=== PATIENT | male | born 1950 | race Caucasian/White ===

== ENCOUNTER 2017-01-23 14:57 | Inpatient (IN) ==
--- NOTE | 2017-01-23 15:29 | Emergency Department Report ---
Nausea/Vomiting/Diarrhea HPI - General Chief complaint: Nausea/Vomiting/Diarrhea Stated complaint: Diarrhea, vomiting, & diff breathing Time Seen by Provider: 01/23/17 15:26 Source: patient Mode of arrival: ambulatory Limitations: no limitations - History of Present Illness HPI Narrative: He presents to ER with c/o abdominal pain and diarrhea. Is having approximately 30 stools per day. He was evaluated in Er on 01/20/17 for the same thing. Had negative workup aside from K+ of 2.9. Did follow up in clinic today with his PCP Yuly Almodovar and was referred back to ER for reevaluation. Denies any fever or chills. Is having vomiting/abdominal pain/ and diarrhea. MD complaint: vomiting, diarrhea, abdominal pain Onset (ago): week(s) Description of Diarrhea: water Associated Abdominal Pain: Yes Location of pain: diffuse Severity: moderate Quality: cramping Consistency: intermittent Relieving factors: none Exacerbating factors: none Associated symptoms: denies other symptoms - Related Data Home Medications Medication Instructions Recorded Confirmed Nitroglycerin 0.4 mg SL Q5MIN PRN #0 09/16/12 01/23/17 Mirtazapine 7.5 mg PO HS #0 07/12/16 01/23/17 Aspirin 81 mg PO DAILY #0 07/28/16 01/23/17 Cyanocobalamin (Vitamin B-12) 2,000 mcg PO DAILY #0 07/28/16 01/23/17 [Vitamin B-12] Famotidine [Pepcid] 20 mg PO DAILY #0 07/28/16 01/23/17 Multivitamin [Multi-Day Vitamins] 1 tab PO DAILY #0 07/28/16 01/23/17 Cholecalciferol (Vitamin D3) 2,000 unit PO DAILY 12/31/16 01/23/17 [Vitamin D3] Oxycodone *Ir* [Roxicodone *Ir*] 7.5 mg PO QID PRN 12/31/16 01/23/17 pramipexole 0.5 mg tablet 1 mg PO HS tab 01/17/17 01/23/17 Metoprolol Tartrate [Lopressor] 25 mg PO BID 01/20/17 01/23/17 Pramipexole Di-HCl [Mirapex] 0.5 mg PO QID PRN 01/20/17 01/23/17 Ciprofloxacin Eye Oint [Ciloxan] 1 applic LEFT EYE QID 01/23/17 01/23/17 Ketorolac 0.5% Eye Drops [Acular 1 drop LEFT EYE QID 01/23/17 01/23/17 0.5% Eye Drops] PrednisoLONE EYE DROPS [Pred Forte] 1 drop LEFT EYE QID 01/23/17 01/23/17 Propylene Glycol [Lubricant Eye 1 drop EACH EAR QID PRN 01/23/17 01/23/17 Drops] Previous Rx's Medication Instructions Recorded Hyoscyamine Sulfate [Levsin-Sl] 0.125 mg SL TID PRN #15 tab.subl 01/20/17 Potassium Chloride [K-Tab ER] 20 meq PO BID #4 tablet.er 01/20/17 Allergies Allergy/AdvReac Type Severity Reaction Status Date / Time No Known Drug Allergies Allergy Unknown Verified 01/23/17 15:07 Review of Systems Constitutional: Denies: fever, chills, weakness Cardiovascular: Denies: chest pain, palpitations, dyspnea on exertion, edema Respiratory: Denies: cough, dyspnea, wheezes Gastrointestinal: Reports: abdominal pain, nausea, vomiting, diarrhea Integumentary: Denies: rash Neurological: Denies: headache, weakness, numbness, paresthesias PFSH Patient Stated Medical History Cerebrovascular Accident Yes: HX OF Cataracts Yes Dental Problems Yes: DENTURES Hypertension Yes Asthma Yes: HX OF Gastroesophageal Reflux Yes Disease Hepatitis Yes Osteoarthritis Yes Substance Use Disorder Yes: HX Clinic Medical History (Last Updated 01/23/17 @ 17:03 by Brooke Hester, ANYA) Pancreatitis (Acute Medical) 08/2012, 02/2013 CAD (coronary artery disease) (Chronic Medical) COPD (chronic obstructive pulmonary disease) (Chronic Medical) Cataracts, bilateral (Chronic Medical) Celiac disease (Chronic Medical) Dyspepsia (Chronic Medical) Hepatitis C (Chronic Medical) Hiatal hernia (Chronic Medical) Low back pain (Chronic Medical) Malnutrition (Chronic Medical) Polycythemia vera (Chronic Medical) RLS (restless legs syndrome) (Chronic Medical) Rheumatoid arthritis (Chronic Medical) Tobacco use disorder (Chronic Medical) Surgical History: Coronary artery stents x3 03/2006. Fractured 3 lumbar vertebrae as a 14 yr old. Cholecystectomy 10/2012 Family History: Family History (Last Reviewed 01/23/17 @ 11:47 by Cher Bettencourt [facility]) Father , at age 65 CAD (coronary artery disease) Mother CVA (cerebral vascular accident) Glaucoma Brain tumor Alzheimers disease Leukemia Son Leukemia as a child Brother Leukemia Diabetes mellitus - Social History Smoking status: Current every day smoker Substance use type: does not use Alcohol intake frequency: former alcohol drinker (1.5 months ago) Physical Exam - Limitations Limitations: no limitations - General General appearance: alert, in no apparent distress - Normal Exams: Neck:: Full range of motion, without adenopathy, JVD, bruits or thyromegaly Chest/Respirations:: Clear all kauffman, with good airflow, and symmetry bilaterally Cardiovascular:: Regular rate and rhythm, without murmur or gallop, Pulses 2+ all extremities, capillary refill, <2 seconds all extremities Abdomen:: Bowel sounds positive, non-distended, no hepatosplenomegaly, masses or bruits noted Lymphatic:: No lymphadenopathy, or lymphedema noted Neurological:: Patient is alert, and oriented Psychiatric:: Patient exhibits, appropriate attention, emotion and affect - Abdominal Exam Abdominal exam: Present: soft, tenderness (diffuse TTP moderately throughout abdomen), normal bowel sounds. Absent: distention, guarding, rebound Course Vital Signs Temperature 97.6 F 01/23/17 15:02 Pulse Rate 64 01/23/17 15:02 Respiratory Rate 20 01/23/17 15:02 Blood Pressure 139/71 01/23/17 15:02 Pulse Oximetry 100 01/23/17 15:02 Temperature 97.6 F 01/23/17 15:02 Pulse Rate 56 L 01/23/17 17:02 Respiratory Rate 12 01/23/17 17:02 Blood Pressure 152/73 H 01/23/17 17:02 Pulse Oximetry 100 01/23/17 17:02 Nausea/Vomiting/Diarrhea - [place] Narrative Medical decision making narrative: K+ up from last visit, is 3.1 today. Creatinine however is up as well to 2.0 from 1.7. 1 Liter of IVF given in ER. Did discuss findings with Dr Burns. Will accept for admission at this time. - Differential Diagnosis Likely: traveler's diarrhea, food poisoning, gastroenteritis, dehydration - Lab Data Attestation: I reviewed the patient's lab results. Result diagrams: 01/23/17 15:31 01/23/17 15:31 Lab Results 01/23/17 01/23/17 01/23/17 Range/Units 15:31 15:31 15:31 WBC 9.6 (4.5-11.0) T/MM3 RBC 5.23 (4.50-5.90) M/MM3 Hgb 12.5 L (13.5-17.5) GM/DL Hct 38.5 L (41-53) % MCV 73.6 L (80-100) UM3 MCH 23.9 L (26-34) UUG MCHC 32.5 (31-37) GM/DL RDW Std Deviation 46.5 (36.9-50.2) FL Plt Count 279 (130-400) T/MM3 MPV 10.7 (9.4-12.4) UM3 Immature Gran % (Auto) 0.2 (0.0-0.5) % Neut % (Auto) 65.4 (33-66) % Lymph % (Auto) 27.4 (23-45) % [place] % (Auto) 6.7 (0-9.0) % Eos % (Auto) 0.2 (0-4) % Baso % (Auto) 0.1 (0-2) % Neut # 6.3 (1.8-7.7) T/MM3 Lymph # 2.6 (1-4.8) T/MM3 [place] # 0.6 (0-0.8) T/MM3 Eos # 0.0 (0-0.5) T/MM3 Baso # 0.0 (0-0.2) T/MM3 Abs Immat Gran (auto) 0.02 (0.00-0.03) T/MM3 Turbidity < 20 (0-20) Sodium 140 (134-144) MEQ/L Potassium 3.1 L (3.6-5) MEQ/L Chloride 117 H (98-107) MEQ/L Carbon Dioxide 10 L (22-30) MEQ/L Anion Gap 13 (5-15) MEQ/L BUN 16.0 (9-20) MG/DL Creatinine 2.0 H (0.8-1.5) MG/DL GFR Calculation 34 BUN/Creatinine Ratio 8 (6-26) RATIO Glucose 91 (75-110) MG/DL Calculated Osmolality 270 (261-280) MOSM/KG Calcium 7.6 L (8.4-10.2) MG/DL Total Bilirubin 0.40 (0.20-1.30) MG/DL Icterus Index < 2 (0-7) AST 29 (17-59) U/L ALT 56 (21-72) U/L Alkaline Phosphatase 91 (38-126) U/L Troponin I < 0.012 (0-0.12) ng/ml Total Protein 6.5 (6.3-8.2) G/DL Albumin 3.6 (3.5-5.0) G/DL Globulin 2.9 (2.4-3.6) G/DL Albumin/Globulin Ratio 1.2 (1.1-2.2) RATIO Lipase 218 (23-300) U/L Specimen Hemolysis < 15 < 15 (0-25) Ur Collection Type Urine Color (YELLOW) Urine Clarity Urine pH (5.0-8.0) Ur Specific [place] (1.015-1.025) Urine Protein (NEGATIVE) Urine Glucose (UA) (NEGATIVE) Urine Ketones (NEGATIVE) Urine Occult Blood (NEGATIVE) Urine Nitrate (NEGATIVE) Urine Bilirubin (NEGATIVE) Urine Urobilinogen (NORMAL) EU/DL Ur Leukocyte Esterase (NEGATIVE) Urine RBC (0-3) /HPF Urine WBC (0-5) /HPF Ur Squamous Epith Cells Amorphous Sediment Urine Bacteria (NEGATIVE) Ur Culture Indicated? 01/23/17 Range/Units 16:28 WBC (4.5-11.0) T/MM3 RBC (4.50-5.90) M/MM3 Hgb (13.5-17.5) GM/DL Hct (41-53) % MCV (80-100) UM3 MCH (26-34) UUG MCHC (31-37) GM/DL RDW Std Deviation (36.9-50.2) FL Plt Count (130-400) T/MM3 MPV (9.4-12.4) UM3 Immature Gran % (Auto) (0.0-0.5) % Neut % (Auto) (33-66) % Lymph % (Auto) (23-45) % [place] % (Auto) (0-9.0) % Eos % (Auto) (0-4) % Baso % (Auto) (0-2) % Neut # (1.8-7.7) T/MM3 Lymph # (1-4.8) T/MM3 [place] # (0-0.8) T/MM3 Eos # (0-0.5) T/MM3 Baso # (0-0.2) T/MM3 Abs Immat Gran (auto) (0.00-0.03) T/MM3 Turbidity (0-20) Sodium (134-144) MEQ/L Potassium (3.6-5) MEQ/L Chloride (98-107) MEQ/L Carbon Dioxide (22-30) MEQ/L Anion Gap (5-15) MEQ/L BUN (9-20) MG/DL Creatinine (0.8-1.5) MG/DL GFR Calculation BUN/Creatinine Ratio (6-26) RATIO Glucose (75-110) MG/DL Calculated Osmolality (261-280) MOSM/KG Calcium (8.4-10.2) MG/DL Total Bilirubin (0.20-1.30) MG/DL Icterus Index (0-7) AST (17-59) U/L ALT (21-72) U/L Alkaline Phosphatase (38-126) U/L Troponin I (0-0.12) ng/ml Total Protein (6.3-8.2) G/DL Albumin (3.5-5.0) G/DL Globulin (2.4-3.6) G/DL Albumin/Globulin Ratio (1.1-2.2) RATIO Lipase (23-300) U/L Specimen Hemolysis (0-25) Ur Collection Type Urine, clean catch Urine Color Yellow (YELLOW) Urine Clarity Clear Urine pH 6.0 (5.0-8.0) Ur Specific [place] 1.020 (1.015-1.025) Urine Protein 2+ A (NEGATIVE) Urine Glucose (UA) Negative (NEGATIVE) Urine Ketones Negative (NEGATIVE) Urine Occult Blood 2+ A (NEGATIVE) Urine Nitrate Negative (NEGATIVE) Urine Bilirubin Negative (NEGATIVE) Urine Urobilinogen 0.2 (NORMAL) EU/DL Ur Leukocyte Esterase Negative (NEGATIVE) Urine RBC None seen (0-3) /HPF Urine WBC 0-1 (0-5) /HPF Ur Squamous Epith Cells None seen Amorphous Sediment Few Urine Bacteria None seen (NEGATIVE) Ur Culture Indicated? Cult not indicated - Radiology Data Attestation: I reviewed the patient's radiology results. Chest xray: no acute cardiopulmonary process Disposition Clinical Impression: Diarrhea Qualifiers: Diarrhea type: unspecified type Qualified Code(s): R19.7 - Diarrhea, unspecified Disposition: 02 To OBS [facility] [place] Condition: Stable Time of Disposition: 17:03 - Seen By: midlevel
[2017-01-23] MEDS: SALINE FLUSH 10ml SYRINGE IVF PRN (15:49)
[2017-01-23] MEDS: NS 1,000 ML IV SCH ×3 (15:49→23:04)
--- NOTE | 2017-01-23 16:43 | XRay Report ---
INDICATION: dyspnea PROCEDURE: CHEST 2-VIEWS UPRIGHT (PA & LAT) Encounter: Initial COMPARISON: December 31, 2016 FINDINGS: The lungs are clear without evidence of focal abnormal airspace opacity. There is no pleural effusion or pneumothorax. Slight apical pleural thickening or scarring. The heart size, mediastinal contours and pulmonary vascularity are within normal limits. There is no significant skeletal abnormality. IMPRESSION: No acute cardiopulmonary disease. .
[2017-01-23] MEDS ORDERED: PRAMIPEXOLE 0.5 MG TABLET PO PRN (17:44)
[2017-01-23] MEDS ORDERED: SYSTANE EYE DROPS 0.7ml EACH EYE PRN (17:44)
[2017-01-23] MEDS ORDERED: NITROGLYCERIN 0.4 MG SUBLINGUAL TABLET SL PRN (17:44)
[2017-01-23] MEDS ORDERED: Hyoscyamine 0.125 MG SL tab SL PRN (17:44)
[2017-01-23] MEDS ORDERED: LR 1,000 ML IV SCH (17:45)
[2017-01-23] MEDS ORDERED: HYDROMORPHONE 2 MG/ML INJECTION IVP ONE (17:55)
[2017-01-23] MEDS ORDERED: SODIUM BICARBONATE IV SCH (18:10)
[2017-01-23] MEDS ORDERED: D5W IV SCH (18:10)
[2017-01-23] MEDS: ASPIRIN 81 MG CHEWABLE TABLET PO SCH (19:19)
[2017-01-23] MEDS: SODIUM BICARBONATE 100 MEQ in D5W 1,000 ML IV SCH (19:20)
[2017-01-23] MEDS: MAGNESIUM SULFATE 1gm PREMIX 1 GM/100 ML BAG IV SCH ×4 (20:14→23:41)
[2017-01-23] MEDS: POTASSIUM CHLORIDE PREMIX 10 MEQ/100 ML BAG IV SCH ×4 (20:15→23:41)
[2017-01-23] MEDS: PANTOPRAZOLE 40 MG INJECTION IVP SCH (20:16)
--- NOTE | 2017-01-23 20:46 | History & Physical Report ---
History of Present Illness Date: 01/24/17 HPI: Pt referred by PCP for abdominal pain (more on the RUQ) and profuse diarrhea. Pt seen in the ED, no elevation of pancreatic enzymes, no elevated WBC, LFT's are not critically elevated (Apparently pt is S/P cholecystectomy) pt very acidotic and in renal failure most likely chronic + severely malnourished and cachectic, pt has H.O celiac sprue per PCP. Pt also states he has Hepatitis C and states has a "spot" on his liver. He was apparently not a candidate for PEGINTRON + Rivavirin in the past, he is a Vet but does not follow at the [facility], does not recall being evaluated for the newer anti-virals. Review of Systems - Integumentary/Breasts Integumentary: Absent: rash PFSH Patient Stated Medical History Cerebrovascular Accident Yes: HX OF Cataracts Yes Dental Problems Yes: DENTURES Congestive Heart Failure Yes Coronary Artery Disease Yes Hypertension Yes Asthma Yes: HX OF Bronchitis Yes Pneumonia Yes Sleep Apnea Yes Hepatitis Yes Hx Renal Disease No Osteoarthritis Yes Eating Disorder Yes: at times Substance Use Disorder HX Clinic Medical History (Last Updated 01/23/17 @ 17:03 by Brooke Hester APRN) Cataracts, bilateral (Chronic Medical) Tobacco use disorder (Chronic Medical) Malnutrition (Chronic Medical) Low back pain (Chronic Medical) Celiac disease (Chronic Medical) Hepatitis C (Chronic Medical) COPD (chronic obstructive pulmonary disease) (Chronic Medical) Pancreatitis (Acute Medical) 08/2012, 02/2013 Hiatal hernia (Chronic Medical) Dyspepsia (Chronic Medical) RLS (restless legs syndrome) (Chronic Medical) Rheumatoid arthritis (Chronic Medical) Polycythemia vera (Chronic Medical) CAD (coronary artery disease) (Chronic Medical) Surgical History: Coronary artery stents x3 03/2006. Fractured 3 lumbar vertebrae as a 14 yr old. Cholecystectomy 10/2012 Family History: Family History (Last Reviewed 01/23/17 @ 11:47 by RACHEL Nicole) Father , at age 65 CAD (coronary artery disease) Mother CVA (cerebral vascular accident) Glaucoma Brain tumor Alzheimers disease Leukemia Son Leukemia as a child Brother Leukemia Diabetes mellitus - Social History Smoking status: Current every day smoker Medications Home Medications Medication Instructions Recorded Confirmed Type Nitroglycerin 0.4 mg SL Q5MIN PRN #0 09/16/12 01/23/17 History Mirtazapine 7.5 mg PO HS #0 07/12/16 01/23/17 History Aspirin 81 mg PO DAILY #0 07/28/16 01/23/17 History Cyanocobalamin (Vitamin B-12) 2,000 mcg PO DAILY #0 07/28/16 01/23/17 History [Vitamin B-12] Famotidine [Pepcid] 20 mg PO DAILY #0 07/28/16 01/23/17 History Multivitamin [Multi-Day Vitamins] 1 tab PO DAILY #0 07/28/16 01/23/17 History Cholecalciferol (Vitamin D3) 2,000 unit PO DAILY 12/31/16 01/23/17 History [Vitamin D3] Oxycodone *Ir* [Roxicodone *Ir*] 7.5 mg PO QID PRN 12/31/16 01/23/17 History pramipexole 0.5 mg tablet 1 mg PO HS tab 01/17/17 01/23/17 History Metoprolol Tartrate [Lopressor] 25 mg PO BID 01/20/17 01/23/17 History Pramipexole Di-HCl [Mirapex] 0.5 mg PO QID PRN 01/20/17 01/23/17 History Ciprofloxacin Eye Oint [Ciloxan] 1 applic LEFT EYE QID 01/23/17 01/23/17 History Ketorolac 0.5% Eye Drops [Acular 1 drop LEFT EYE QID 01/23/17 01/23/17 History 0.5% Eye Drops] PrednisoLONE EYE DROPS [Pred Forte] 1 drop LEFT EYE QID 01/23/17 01/23/17 History Propylene Glycol [Lubricant Eye 1 drop EACH EAR QID PRN 01/23/17 01/23/17 History Drops] Allergies Allergy/AdvReac Type Severity Reaction Status Date / Time No Known Drug Allergies Allergy Unknown Verified 01/23/17 15:07 Exam Vital Signs: Temperature 95.5 F L 01/23/17 18:18 Pulse Rate 63 01/23/17 18:18 Respiratory Rate 18 01/23/17 18:18 Blood Pressure 171/97 H 01/23/17 18:18 Pulse Oximetry 94 01/23/17 18:18 Oxygen Delivery Method Room Air Height: 5 ft 8 in Weight: 44.5 kg Body Mass Index: 14.9 Results - Labs CBC & Chem 7: 01/24/17 02:54 01/24/17 02:54 - ABG Interpretation ABG results: 01/23/17 17:45 ABG pH 7.130 L* ABG pCO2 14 L* ABG pO2 129 H ABG HCO3 5 L ABG Total CO2 5.1 L ABG O2 Saturation 98.0 ABG Base Excess -22.3 L Assessment and Plan Assessment and Plan: This is a 66 YO male with H.O Celiac sprue, that comes with diarrhea very weak and malnourished and with renal failure that is probably much worse than appreciated by his sCr due to his cachexia. He takes opioids at home (Only IR Oxycodone) for pain, was a smoker in the past of 1/2 PPD but quit years ago. He states he has been wasting away for 4 to 6 years. In the initial labs pt has severe metabolic acidosis, severe hypomagnesemia, hypokalemia, renal failure. He is not too anemic but suspect he will hemodilute. A PICC was placed anticipating the need for TPN and multiple electrolyte drips. Dx 1) Severe protein calorie malnutrition 2) Diarrhea, pannel send, C Diff ordered. Pt was checked for HIV several years ago, may need retested. CT abd/Pelvis ordered 3) Acidosis - Start Bicarb drip - Rehydrate 4) FEN A) Hypokelamia - Give 40 MEq IV. B) Hypomagnesemia - Give 4 gm IV 5) Hematuria with this degree of cachexia a malignancy is possible - renal cell , hepatocarcinoma. CXR shows no mass. - CT scan abdomen and pelvis no contrast - done but not read yet. 6) HTN ? Pt on BB will hold now due to bradycardia. 7) PT is FULL CODE FOR NOW. . Sepsis Assessment - Evaluation Sepsis screening result: No Definite Risk Hospital Course Summary Disclaimer: The visit summary below is not to be considered part of the above Progress Note.
[2017-01-23] MEDS: BUDESONIDE/FORMOTEROL 80/4.5mcg INHALER ORAL INH SCH (21:08)
[2017-01-23] MEDS: CIPROFLOXACIN 0.3% LEFT EYE SCH (21:39)
[2017-01-23] MEDS: EYE LEFT EYE SCH ×2 (21:39→21:40)
[2017-01-23] MEDS: KETOROLAC 0.5% LEFT EYE SCH (21:40)
[2017-01-23] MEDS: PrednisoLONE 1% EYE DROPS 5ml LEFT EYE SCH (21:41)
[2017-01-23] MEDS ORDERED: MIRTAZAPINE 15 MG TABLET PO SCH (22:00)
[2017-01-24] MEDS: SALINE FLUSH 10ml SYRINGE IVF PRN (00:51)
[2017-01-24] MEDS: POTASSIUM CHLORIDE PREMIX 10 MEQ/100 ML BAG IV SCH ×5 (04:26→19:13)
[2017-01-24] MEDS: SODIUM BICARBONATE 100 MEQ in D5W 1,000 ML IV SCH (07:32)
[2017-01-24] MEDS: PANTOPRAZOLE 40 MG INJECTION IVP SCH (09:03)
[2017-01-24] MEDS: ASPIRIN 81 MG CHEWABLE TABLET PO SCH (09:05)
[2017-01-24] MEDS: PRAMIPEXOLE 1 MG TABLET PO SCH ×3 (09:05→17:06)
[2017-01-24] MEDS: CYANOCOBALAMIN (B-12) 500mcg TABLET PO SCH (09:06)
[2017-01-24] MEDS: PrednisoLONE 1% EYE DROPS 5ml LEFT EYE SCH ×4 (09:06→21:30)
[2017-01-24] MEDS: CIPROFLOXACIN 0.3% LEFT EYE SCH ×4 (09:07→21:34)
[2017-01-24] MEDS: EYE LEFT EYE SCH ×8 (09:07→21:34)
[2017-01-24] MEDS: KETOROLAC 0.5% LEFT EYE SCH ×4 (09:07→21:32)
[2017-01-24] MEDS: BUDESONIDE/FORMOTEROL 80/4.5mcg INHALER ORAL INH SCH ×2 (09:59→21:42)
--- NOTE | 2017-01-24 11:34 | Progress Note ---
Subjective: Pt states he is feeling better today. He had a short run of NSVT last night. BB on hold. Objective Vital signs: Temperature 96.0 F L 01/24/17 08:45 Pulse Rate 64 01/24/17 08:45 Respiratory Rate 12 01/24/17 09:59 Blood Pressure 115/69 01/24/17 08:45 Pulse Oximetry 100 01/24/17 08:45 Oxygen Delivery Method Room Air Rhythm: Sinus Bradycardia Cardiac Ectopy: Occasional PVC's Body Mass Index: 14.9 - Constitutional Present: no acute distress - Routine HEENT Exam Head: Present: normocephalic, atraumatic Eye: Present: EOMI, PERRL - Routine Cardiovascular Exam Present: RRR - Routine Abdominal Exam Present: soft, non distended, non tender - Routine Extremities Exam Present: clubbing. Absent: cyanosis, edema - Routine Neurological Exam Present: alert, oriented X3, CN II-XII intact Results - Labs CBC & Chem 7: 01/24/17 11:18 01/24/17 11:18 - ABG Interpretation ABG results: 01/23/17 01/24/17 17:45 02:54 ABG pH 7.130 L* ABG pCO2 14 L* ABG pO2 129 H ABG HCO3 5 L ABG Total CO2 5.1 L ABG O2 Saturation 98.0 ABG Base Excess -22.3 L VBG pH 7.250 L VBG pCO2 20 L VBG pO2 53 H VBG HCO3 9 L VBG Total CO2 9.4 VBG O2 Saturation 81.0 VBG Base Excess -16.4 L Assessment and Plan Assessment and Plan: SUMMARY - This is a 66 YO male with H.O Celiac sprue, that comes with diarrhea very weak and malnourished and with renal failure that is probably much worse than appreciated by his sCr due to his cachexia. He takes opioids at home (Only IR Oxycodone) for pain, was a smoker in the past of 1/2 PPD but quit years ago. He states he has been wasting away for 4 to 6 years. In the initial labs pt has severe metabolic acidosis, severe hypomagnesemia, hypokalemia, renal failure. He is not too anemic but suspect he will hemodilute. A PICC was placed anticipating the need for TPN and multiple electrolyte drips. Diagnosis - 1) Severe protein calorie malnutrition, with advanced sarcopenia/weakness. - Multiple studies are pending. 2) Acidosis, metabolic. - Initial ABG - pH - 7.13, PO2 - 129, PCO2 - 14, Bicarb 5, Saturation of O2 98% - Continue with Bicarb drip. - Could be related to renal failure or diarrhea. 3) FEN - A) Hypokelamia - Give 40 MEq IV. B) Hypomagnesemia - Give 4 gm IV Will rechek later today. 4) Short run on NSVT (01/23 overnight - per upholstery trimmer report). - Will check a 2-D echo, pt could have advanced CHF with cardiac cachexia. 5) Diarrhea, pannel send, C Diff ordered. Pt was checked for HIV several years ago, may need retested. CT abd/Pelvis ordered - images available - not official read. I see a very large bladder, will bladder scan him. 6) Hematuria with this degree of cachexia a malignancy is possible - renal cell , hepatocarcinoma. - CXR shows no mass, this is reassuring. - May need a CT contrast if his creatinine improves to look at that liver "Spot " - CT scan abdomen and pelvis no contrast - done but not read yet. 7) HTN ? Pt on BB will hold now due to bradycardia. PREVENTION - PANTOPRAZOLE IV SCD'S PT is FULL CODE FOR NOW. . Sepsis Assessment - Evaluation Sepsis screening result: No Definite Risk Hospital Course Summary Disclaimer: The visit summary below is not to be considered part of the above Progress Note.
[2017-01-24] MEDS: Oxycodone *IR* 15 MG TABLET PO PRN ×2 (13:20→21:28)
--- NOTE | 2017-01-24 13:57 | CT Scan Report ---
Indication: hematuria, ? liver cancer, renal failure diarrhea, wt loss PROCEDURE: CT abdomen pelvis wo con: Encounter: Initial Comparison: CT abdomen dated July 28, 2016 Technique: Axial CT images were performed through the abdomen and pelvis without intravenous contrast. Coronal and sagittal two-dimensional reformats. Automated Exposure Control and Iterative Reconstruction dose reducing techniques were utilized. Findings: Mild emphysema. The unenhanced contours of the liver are unremarkable. Evaluation is limited given the lack of intra-abdominal fat and contrast. The spleen, pancreas and adrenal glands are within normal limits. Small nonobstructing left renal stones. Kidneys are otherwise unremarkable. Atherosclerotic plaque in the arterial vasculature. No evidence of a bowel obstruction. Trace free fluid. No free air. Bone windows show no acute findings. Probable bone island in the L2 vertebra. Impression: Limited exam. No acute disease process seen. There is a preliminary report by [facility]. .
[2017-01-24] MEDS: MAGNESIUM SULFATE 1gm PREMIX 1 GM/100 ML BAG IV SCH ×2 (17:28→18:11)
[2017-01-24] MEDS: D5W IV SCH ×2 (18:12→19:01)
[2017-01-24] MEDS: SODIUM ACETATE IV SCH (18:12)
[2017-01-24] MEDS: POTASSIUM PHOSPHATE IV SCH (19:01)
[2017-01-24] MEDS: ONDANSETRON 4 MG/2 ML INJECTION IVP PRN (19:03)
[2017-01-24] MEDS ORDERED: MULTI-VIT INFUSION 10 ML, MULTI-TRACE ELEMENTS 1 ML in TPN - STANDARD FORMULA 2,000 ML IV SCH (21:00)
[2017-01-24] MEDS: MIRTAZAPINE 15 MG TABLET PO SCH (21:29)
[2017-01-25] MEDS ORDERED: HYDROMORPHONE 2 MG/ML INJECTION IVP ONE (05:00)
[2017-01-25] MEDS: SODIUM ACETATE IV SCH ×2 (05:34→18:25)
[2017-01-25] MEDS: D5W IV SCH ×3 (05:34→18:25)
[2017-01-25] MEDS ORDERED: MULTI-VIT INFUSION 10 ML, MULTI-TRACE ELEMENTS 1 ML in TPN - STANDARD FORMULA 2,000 ML IV SCH (09:00)
[2017-01-25] MEDS: CYANOCOBALAMIN (B-12) 500mcg TABLET PO SCH (09:34)
[2017-01-25] MEDS: PRAMIPEXOLE 1 MG TABLET PO SCH ×3 (09:34→21:11)
[2017-01-25] MEDS: ASPIRIN 81 MG CHEWABLE TABLET PO SCH (09:34)
[2017-01-25] MEDS: PANTOPRAZOLE 40 MG INJECTION IVP SCH (09:35)
[2017-01-25] MEDS ORDERED: LIDOCAINE 2% JELLY (Urojet) 20ml MM ONE (10:19)
[2017-01-25] MEDS: BUDESONIDE/FORMOTEROL 80/4.5mcg INHALER ORAL INH SCH ×2 (10:43→21:16)
[2017-01-25] MEDS: PrednisoLONE 1% EYE DROPS 5ml LEFT EYE SCH ×4 (10:48→21:25)
[2017-01-25] MEDS: CIPROFLOXACIN 0.3% LEFT EYE SCH ×4 (10:49→21:13)
[2017-01-25] MEDS: EYE LEFT EYE SCH ×8 (10:49→21:13)
[2017-01-25] MEDS: KETOROLAC 0.5% LEFT EYE SCH ×4 (10:49→21:13)
[2017-01-25] MEDS: Oxycodone *IR* 15 MG TABLET PO PRN (10:54)
[2017-01-25] MEDS ORDERED: [UNRECOGNIZED DRUG - OTHER] IV SCH (11:30)
[2017-01-25] MEDS ORDERED: POTASSIUM PHOSPHATE IV SCH (11:30)
[2017-01-25] MEDS ORDERED: SODIUM CHLORIDE IV SCH (11:30)
[2017-01-25] MEDS ORDERED: SODIUM ACETATE IV SCH (11:30)
[2017-01-25] MEDS: SODIUM BICARBONATE 100 MEQ in D5W 1,000 ML IV SCH (11:38)
[2017-01-25] MEDS: POTASSIUM PHOSPHATE IV SCH (11:39)
--- NOTE | 2017-01-25 11:53 | Progress Note ---
Subjective: Pt states he is feeling better today, has been less nauseated and is stating to eat. Urology saw him and for now we can hold on the Wood catheter. He denies significant abdominal pain today, wants to start walking. Objective Vital signs: Temperature 96.3 F L 01/25/17 08:00 Pulse Rate 53 L 01/25/17 08:00 Respiratory Rate 14 01/25/17 08:00 Blood Pressure 126/70 01/25/17 08:00 Pulse Oximetry 97 01/25/17 08:00 Oxygen Delivery Method Room Air Rhythm: Normal Sinus Rhythm Weight: 44.9 kg - Constitutional Present: cachectic - Routine HEENT Exam Head: Present: normocephalic, atraumatic Eye: Present: EOMI, PERRL - Routine Respiratory Exam Present: CTA bilaterally - Routine Cardiovascular Exam Present: RRR - Routine Abdominal Exam Present: soft, non distended, non tender - Routine Extremities Exam Present: clubbing. Absent: cyanosis, edema - Routine Neurological Exam Present: alert, oriented X3, CN II-XII intact - Routine Psychiatric Exam Present: normal affect, cooperative Results - Labs CBC & Chem 7: 01/25/17 08:34 01/25/17 08:34 - ABG Interpretation ABG results: 01/23/17 01/24/17 17:45 02:54 ABG pH 7.130 L* ABG pCO2 14 L* ABG pO2 129 H ABG HCO3 5 L ABG Total CO2 5.1 L ABG O2 Saturation 98.0 ABG Base Excess -22.3 L VBG pH 7.250 L VBG pCO2 20 L VBG pO2 53 H VBG HCO3 9 L VBG Total CO2 9.4 VBG O2 Saturation 81.0 VBG Base Excess -16.4 L Assessment and Plan (1) Cachexia Current visit: Yes Status: Chronic (2) Chronic kidney disease Current visit: Yes Status: Chronic (3) Acute kidney injury superimposed on chronic kidney disease Current visit: Yes Status: Acute (4) Dehydration Current visit: Yes Status: Resolved (5) Hypertension Current visit: Yes Status: Chronic (6) Ventricular tachycardia Current visit: Yes Status: Resolved (7) Hypophosphatemia Current visit: Yes Status: Acute (8) Hypomagnesemia Current visit: Yes Status: Acute (9) Hypokalemia Current visit: Yes Status: Acute (10) Hyponatremia Current visit: Yes Status: Acute (11) Malnutrition due to starvation Current visit: Yes Status: Chronic Assessment and Plan: SUMMARY - This is a 66 YO male with H.O Celiac sprue, that comes with diarrhea very weak and malnourished and with renal failure that is probably much worse than appreciated by his sCr due to his cachexia. He takes opioids at home (Only IR Oxycodone) for pain, was a smoker in the past of 1/2 PPD but quit years ago. He states he has been wasting away for 4 to 6 years. In the initial labs pt has severe metabolic acidosis, severe hypomagnesemia, hypokalemia, renal failure. He is not too anemic but suspect he will hemodilute. A PICC was placed anticipating the need for TPN and multiple electrolyte drips. He will be started on Low carb TPN (01/25) and in a GLUTEN FREE DIET (FULL LIQUID). His UDS showed exposure to Cannabis, pt states he has been using it to improve his appetite with good results. Diagnosis - 1) GASTROINTESTINAL ASSSEMENT A) PROFOUND MALNUTRITION (Albumin - 2.5 LOW* prealbumin 12LOW) - MALABSORPTION IS LIKELY - Celiac sprue ? (By H.O Provided by PCP) Pt presents with Severe protein calorie malnutrition, advanced sarcopenia/ weakness, multiple electrolyte abnormalities. - Multiple studies are pending -Celiac disease pannel ordered (TTG N/A - ordered a pannel) - Testosterone, Vit D, HIV - Added Marinol for nausea (01/25) - Will check a CT abd/pelvis with ORAL contrast tomorrow (01/26) - Concerning - if he has had Celiac sprue - for a small bowel lymphoma. - NUTRITION SUPPORT - Started a Full liquid diet (gluten free) on 01/25 - Started on TPN (01/25) - low carb at a low rate. - Watch for refeeding syndrome - Appreciate pharmacy assistance in this case. B) H/O Hepatitis C, pt states he had a "Spot" in his liver (Has been in a [facility] in the past) and was deemed to be NOT a good candidate for PEGINTRON + Ribavirin. - Viral load pending - If + for hepatitis C check hepatitis B - If negative immunize. If + -> Tx for hep C may be very risky. - May benefit from ID consultation once tests are back to evaluate for treatment. C) Diarrhea, pannel send, C Diff ordered. Pt was checked for HIV several years ago - was rechecked today. - CT abd.Pelvis with Oral contrast tomorrow. ON admission pt was vomiting so this could not be done. - CT abdomen/Pelvis no contrast on admission - did not show any gross evidence of metastatic disease. D) S/P Cholecystectomy. 2) FLUID ELECTROLYTE AND ACID BASE A) Acidosis, metabolic, on admission ABG showed - pH - 7.13, PO2 - 129, PCO2 - 14, Bicarb 5, Saturation of O2 98% - Pt on Bicarb drip since admission, will add oral Bicarb (01/25) - Probably related to CKD/Diarrhea or both. B) FEN - i) Hypokelamia - Lowest K - 2.7 (01/24) Continue replacing ii) Hypomagnesemia - Lowest Mg - 0.7 (01/23) Stable now, will watch carefully. iii) Hypophosphatemia - Lowest PO4 1.6 (7.4) Corrected yesterday with 15MMol. iv) Hyponatremia - Na 133 (01/25) will recheck. 3) CARDIOVASCULAR ASSESMENT A) HTN by history. Pt on BB will hold now due to bradycardia. - BP normal today, HR is still in the 50's - TSH normal. B) Short run on NSVT (01/23 overnight - per menhaden vessel pilot report). - 2-D echo done, reading is pending, pt could have advanced CHF with cardiac cachexia. - Probably due on admission to electrolyte abnormalities. 4) Hematuria with this degree of cachexia a malignancy is possible - renal cell , hepatocarcinoma. - CXR shows no mass, this is reassuring. - CT scan abdomen and pelvis no contrast - No mass. - Was retaining urine - a wood was attemped last night but could not be passed. Was placed on Flomax on 01/24 - was able to urinate now. - Urology consulted - No need for Wood - Pt will need Cystoscopy and probably urodinamics (this can be done as outpatient). 5) PREVENTION - - PANTOPRAZOLE IV - SCD'S CODE STATUS IS FULL. . Sepsis Assessment - Evaluation Sepsis screening result: No Definite Risk Hospital Course Summary Disclaimer: The visit summary below is not to be considered part of the above Progress Note.
--- NOTE | 2017-01-25 11:55 | Pharmacy Consult-TPN/PPN ---
Pharmacy Consult-TPN/PPN - Laboratory Information Chemistry Turbidity < 20 (0-20) 01/25/17 08:34 Sodium 133 MEQ/L (134-144) L 01/25/17 08:34 Potassium 2.4 MEQ/L (3.6-5) L* 01/25/17 08:34 Chloride 111 MEQ/L (98-107) H 01/25/17 08:34 Carbon Dioxide 14 MEQ/L (22-30) L 01/25/17 08:34 Anion Gap 8 MEQ/L (5-15) 01/25/17 08:34 BUN 14.0 MG/DL (9-20) 01/25/17 08:34 Creatinine 1.3 MG/DL (0.8-1.5) D 01/25/17 08:34 GFR Calculation 56 01/25/17 08:34 BUN/Creatinine Ratio 11 RATIO (6-26) 01/25/17 08:34 Glucose 93 MG/DL (75-110) 01/25/17 08:34 Calculated Osmolality 257 MOSM/KG (261-280) L 01/25/17 08:34 Calcium 7.4 MG/DL (8.4-10.2) L 01/25/17 08:34 Phosphorus 3.3 MG/DL (2.5-4.5) 01/25/17 08:34 Magnesium 2.3 MG/DL (1.6-2.3) D 01/25/17 08:34 Total Bilirubin 0.30 MG/DL (0.20-1.30) 01/24/17 11:18 Conjugated Bilirubin 0.00 MG/DL (0.00-0.30) 01/24/17 11:18 Unconjugated Bilirubin 0.10 MG/DL (0.00-11.10) 01/24/17 11:18 Icterus Index < 2 (0-7) 01/25/17 08:34 AST 28 U/L (17-59) 01/24/17 11:18 ALT 49 U/L (21-72) 01/24/17 11:18 Alkaline Phosphatase 77 U/L (38-126) 01/24/17 11:18 Troponin I < 0.012 ng/ml (0-0.12) 01/24/17 02:54 Total Protein 4.9 G/DL (6.3-8.2) L 01/24/17 11:18 Albumin 2.5 G/DL (3.5-5.0) L 01/24/17 11:18 Globulin 2.4 G/DL (2.4-3.6) 01/24/17 11:18 Albumin/Globulin Ratio 1.0 RATIO (1.1-2.2) L 01/24/17 11:18 Prealbumin 12.0 MG/DL (17.6-36.0) L 01/24/17 02:54 Lipase 319 U/L (23-300) H 01/24/17 02:54 Plasma Lactate 1.2 MMOL/L (0.6-2.2) 01/24/17 07:45 TSH 2.80 MIU/L (0.47-4.68) 01/24/17 02:54 Specimen Hemolysis < 15 (0-25) 01/25/17 08:34 Intake and Output 01/24/17 01/25/17 01/26/17 06:59 06:59 06:59 Intake Total 983.333 / 6252.376 7388.4061 / 5598.4061 335 / 335 Output Total 1225 / 1225 200 / 200 Balance 983.333 / 7216.717 6229.4061 / 4373.4061 135 / 135 Weight 44.5 kg 47.2 kg 44.9 kg Intake: IV 983.333 / 587.555 6581.4061 / 3988.4061 MAG SULF 1gm PREMIX 1 gm 391.666 / 391.666 71.667 / 71.667 In 100 ml @ 100 mls/hr IV Q1H GIBRAN Rx#:[id number] POTASSIUM CHLORIDE PREMIX 591.667 / 591.667 200 / 200 10 meq In 100 ml @ 100 mls/hr IV Q4HR GIBRAN Rx#: [id number] K Phos Inj 15 Meq In 503.4091 / 503.4091 Dextrose 5% in Water 500 ml @ 100 mls/hr IV .Q5H3M GIBRAN Rx#:[id number] Sodium Acetate 100 Meq In 1050 / 1050 Dextrose 5% in Water 1, 000 ml @ 100 mls/hr IV . [id number] GIBRAN Rx#:[id number] Sodium Bicarbonate 100 2163.33 / 2163.33 Meq In Dextrose 5% in Water 1,000 ml @ 100 mls/ hr IV .Q11H GIBRAN Rx#: [id number] Oral 1610 / 1610 335 / 335 Output: Urine 725 / 725 200 / 200 Stool 500 / 500 Other: # Voids 1 # Bowel Movements 1 1 1 # Incontinent Bowel 1 Movements - Consult Information Will begin custom Low Carb TPN at 35 mls/hr. The electrolytes will include 100mEq of potassium acetate and 44 meq of potassium phosphate. Will plan to increase rate to 70 mls/hr tomorrow if Mr Bella tolerates the TPN. If he continues to tolerate the TPN will change to a standard custom TPN in 2-3 days. Will continue to monitor TPN and adjust lytes accordingly. Thank you.
[2017-01-25] MEDS: POTASSIUM CHLORIDE PREMIX 10 MEQ/100 ML BAG IV SCH ×4 (12:14→18:12)
--- NOTE | 2017-01-25 16:49 | Progress Note ---
Subjective: Anam was seen in conjunction with Dr. Burns. Overall, he is showing improvement. However, he states that he is still very weak and concerned about his ongoing diarrhea and weight loss. He continues to have hematuria, which was evident in the bedside commode. He denies abdominal pain, states his appetite is improving. He ate 75% of breakfast today. Objective Vital signs: Temperature 96.3 F L 01/25/17 08:00 Pulse Rate 57 L 01/25/17 08:00 Respiratory Rate 14 01/25/17 08:00 Blood Pressure 126/70 01/25/17 08:00 Pulse Oximetry 97 01/25/17 08:00 Oxygen Delivery Method Room Air Rhythm: Normal Sinus Rhythm Weight: 44.9 kg - Constitutional Present: no acute distress, cachectic. Absent: well nourished, well developed - Routine HEENT Exam ENT: Present: mucous membranes moist - Routine Cardiovascular Exam Present: S1, S2 - Routine Abdominal Exam Present: soft, normoactive bowel sounds, non distended, non tender - Routine Extremities Exam Present: no edema, pulses intact, normal capillary refill - Routine Skin Exam Present: intact, dry, warm - Routine Neurological Exam Present: alert, oriented X3 - Routine Psychiatric Exam Present: normal affect, normal thought process Results - Labs CBC & Chem 7: 01/25/17 08:34 01/25/17 08:34 - ABG Interpretation ABG results: 01/23/17 01/24/17 17:45 02:54 ABG pH 7.130 L* ABG pCO2 14 L* ABG pO2 129 H ABG HCO3 5 L ABG Total CO2 5.1 L ABG O2 Saturation 98.0 ABG Base Excess -22.3 L VBG pH 7.250 L VBG pCO2 20 L VBG pO2 53 H VBG HCO3 9 L VBG Total CO2 9.4 VBG O2 Saturation 81.0 VBG Base Excess -16.4 L Assessment and Plan (1) Cachexia Current visit: Yes Status: Chronic (2) Chronic kidney disease Current visit: Yes Status: Chronic (3) Acute kidney injury superimposed on chronic kidney disease Current visit: Yes Status: Acute (4) Dehydration Current visit: Yes Status: Resolved (5) Hypertension Current visit: Yes Status: Chronic (6) Ventricular tachycardia Current visit: Yes Status: Resolved (7) Hypophosphatemia Current visit: Yes Status: Acute (8) Hypomagnesemia Current visit: Yes Status: Acute (9) Hypokalemia Current visit: Yes Status: Acute (10) Hyponatremia Current visit: Yes Status: Acute (11) Malnutrition due to starvation Current visit: Yes Status: Chronic DVT Prophylaxis: SCD's GI Prophylaxis: Protonix Assessment and Plan: Plan discussed with Dr. Burns: Malnutrition - suspect malabsorption; studies pending; continue Marinol; CT abd tomorrow. Continue TPN. Electrolyte imbalance - K still significantly low at 2.4 but mag and phos are stable. Continue K replacement. Na slightly low (133). "Spot" on liver - awaiting hepatitis results; may be able to see more on contrast-enhanced CT tomorrow. NSVT, bradycardia - echo pending; BB placed on hold. Hematuria - will need cysto in the future. Sepsis Assessment - Evaluation Sepsis screening result: No Definite Risk Hospital Course Summary Disclaimer: The visit summary below is not to be considered part of the above Progress Note.
[2017-01-25] MEDS: FAT EMULSION 20% 100 ML IV SCH (17:39)
[2017-01-25] MEDS: ONDANSETRON 4 MG/2 ML INJECTION IVP PRN (18:25)
[2017-01-25] MEDS: SODIUM BICARBONATE 650 MG TABLET PO SCH (21:11)
[2017-01-25] MEDS: MIRTAZAPINE 15 MG TABLET PO SCH (21:11)
[2017-01-25] MEDS: TAMSULOSIN 0.4 MG CAPSULE PO SCH (21:11)
[2017-01-25] MEDS: DRONABINOL 2.5 MG CAPSULE PO SCH (21:12)
[2017-01-25] MEDS: MAGNESIUM OXIDE 400 MG TABLET PO SCH (21:12)
[2017-01-25] MEDS: SALINE FLUSH 10ml SYRINGE IVF PRN (21:17)
[2017-01-26] MEDS: SALINE FLUSH 10ml SYRINGE IVF PRN ×2 (04:47→21:00)
[2017-01-26] MEDS ORDERED: SALINE FLUSH 10ml SYRINGE ONE (07:00)
[2017-01-26] MEDS ORDERED: NS 100 ML ONE (07:00)
[2017-01-26] MEDS ORDERED: IODIXANOL 320mg/ml 100ml INJECTION IV ONE (07:01)
--- NOTE | 2017-01-26 07:32 | Consultation ---
DATE OF CONSULTATION 01/25/2017 [employer] Davis Lara MD REFERRING PHYSICIAN Calderon Burns MD REASON FOR CONSULTATION Urinary retention and hematuria with renal failure. HISTORY OF PRESENT ILLNESS Mr. Bella is a 66-year-old man admitted via emergency room with abdominal pain and intractable diarrhea and weight loss. Worry is that he may be suffering from a malignancy causing of his problems including weight loss. On admission he was acidotic and was in renal failure. His creatinine was 1.7 despite his cachectic, malnourished state. Potassium was 2.7 and arterial blood gas showed pH of 7.1. His serum creatinine was dropping gradually with hydration and anticipates TPN to support nutrition. He is complaining of urinary frequency, voiding up to 30 times a day or more. Despite the frequency, he claims at least 6 ounces per micturition in volume and flow is slow but reasonably steady. There is no dysuria, no gross hematuria. He has never had kidney stone and no urologic surgery instrumentation and denies dysuria. There is no family history of prostate cancer. On a bladder scan earlier, there was 500 cc in the bladder. Therefore they attempted to catheterize, but nurses met with resistance and were unable to insert. There was blood showing in the urethra thereafter and he is having more trouble urinating since the attempted catheterization. Therefore, I was consulted. On admission, he had microscopic hematuria and CT scan did show large prostate but no upper tract obstructions. PAST MEDICAL HISTORY l. CVA. 2. Cataracts. 3. Congestive heart failure. 4. Coronary artery disease with hypertension. 5. History of asthma. 6. Suffered from bronchitis and pneumonia in the past. 7. Sleep apnea. 8. Hepatitis. 9. Carries diagnosis of osteoarthritis. 10. History of substance abuse. SURGICAL HISTORY 1. Bilateral cataract. 2. Coronary artery with stents. 3. Has fractured three lumbar vertebrae at age 14. 4. Underwent cholecystectomy. ADDITIONAL MEDIAL HISTORY Includes tobacco abuse, celiac disease, hepatitis C, COPD, pancreatitis history with a hiatal hernia and a dyspepsia, restless leg syndrome, rheumatoid arthritis and polycythemia vera. FAMILY HISTORY Father at age 65 and had coronary artery disease. Mother is and had stroke, glaucoma, brain tumor - glioblastoma. Also had Alzheimer's disease and leukemia. Son has history of leukemia and has a brother with leukemia and diabetes. MEDICATIONS Medications on admission include: Nitroglycerin p.r.n. Mirtazapine 7.5 mg q.h.s. Aspirin 81 mg at day. Vitamin B12 2,000 mcg daily. Pepcid 20 mg daily. Multiple vitamin 1 daily. Cholecalciferol 2,000 units daily. Percocet 7.5 mg q.i.d. p.r.n. Pramipexole 0.5 mg two tablets q.h.s. Metoprolol 25 mg b.i.d. Prednisolone eyedrop 1 drop left eye. ALLERGIES No known medical allergies. REVIEW OF SYSTEMS Denies fever or chills but does have progressive weight loss and diminished appetite. HEENT: Denies lightheadedness and dizziness or syncopal episode. Denies shortness of breath, chronic cough or hemoptysis. Denies chest pain, irregular heart rhythm, peripheral edema. Suffers from constipation but now intractable diarrhea but no bloody stool. Abdominal pain, especially in the right upper quadrant, is complained of. Has chronic back pain with a history of fractured lumbar vertebrae. Denies sciatica. Patient voids frequently with urgency and diminished flow as in present illness history. No history of UTI or dysuria. No testicular swelling or history of prostatitis. PHYSICAL EXAMINATION GENERAL: Alert, oriented male in no acute distress. HEENT: Cachectic man with sunken eyes. Extraocular muscles intact. ENT: Clear. NECK: Trachea is midline and no neck mass but prominent accessory respiratory muscles. CHEST: Barrel chest with diminished breath sounds throughout. There are no rales, rhonchi or wheeze. ABDOMEN: Flat. Has good bowel sounds. No palpable mass or tenderness and no CVA tenderness. UROLOGICALLY: He has normal external genitalia. Normal meatus. Testicles are descended bilaterally without mass or tenderness and no evidence of ingrown hernia is noted. Prostate is +1/+4, benign feeling and nontender. EXTREMITIES: Without edema. Does have some clubbing but no cyanosis. IMPRESSION/RECOMMENDATIONS Patient with microscopic hematuria and renal insufficiency which is improving gradually with hydration. He is malnourished and cachexic and currently contemplating TPN. He has severe urinary frequency but voids in good volume according to the patient. In fact, he has voided over 200 cc per micturition today. Bladder scan was just above 100 cc. Therefore he voids more than 50% of bladder volume and bladder capacity is adequate. Renal failure and hematuria need to be worked up eventually. In order to work up hematuria, he will need a contrasted study of the upper tract. If his renal function does not improve for IV contrast, then he may need retrograde pyelogram. He will definitely need cystoscopy at some point in time which can be done as an outpatient in the office. Urine cytology will be recommended and has been sent. Creatinine has improved substantially over the last few days. If patient is ready to be discharged, then I would do so and I will follow him up in the office for a cystoscopy. If IV contrast could be given and CT scan is contemplated to be repeated, I would recommend having it done per hematuria protocol with delay cuts. Thank you for the consultation. ALICIA
--- NOTE | 2017-01-26 08:19 | CT Scan Report ---
Indication: Cachexia, diarrhea, H.O celiac sprue PROCEDURE: CT abdomen pelvis w con: Encounter: Initial Comparison: CT abdomen and pelvis dated January 23, 2017 Technique: Axial CT images were performed through the abdomen and pelvis after the administration of intravenous contrast. Coronal and sagittal two-dimensional reformats. Automated Exposure Control and Iterative Reconstruction dose reducing techniques were utilized. Contrast: Visipaque 320 67 mL Findings: The lung bases again show emphysema. The liver is decreased in attenuation relative to the spleen suggesting fatty infiltration. No enhancing liver mass or bile duct dilatation. The gallbladder is is not seen and may be decompressed or surgically absent. Areas of severe atherosclerotic plaque in the left renal artery origin. The spleen, pancreas and adrenal glands are within normal limits. Right kidney is normal. Left kidney is atrophic and slightly hypoenhancing, probably due to the severe left renal artery stenosis. Left renal stone also. Heavy atherosclerotic plaque in the infrarenal abdominal aorta and iliac arteries. No evidence of a bowel obstruction. Bladder is unremarkable. Diffusely fluid-filled small and large bowel without evidence of transition point. Appendix is normal. Bone windows show no acute findings. Impression: 1. Diffusely fluid-filled small and large bowel. This could represent a gastroenteritis or possibly relate to the patient's reported history of celiac disease. 2. Significant atherosclerotic plaque in the abdominal aorta and its major branches with severe left renal artery stenosis. 3. Hepatic steatosis. .
[2017-01-26] MEDS: PRAMIPEXOLE 1 MG TABLET PO SCH ×3 (08:41→17:14)
[2017-01-26] MEDS: MAGNESIUM OXIDE 400 MG TABLET PO SCH ×2 (08:41→21:00)
[2017-01-26] MEDS: SODIUM BICARBONATE 650 MG TABLET PO SCH ×2 (08:41→20:59)
[2017-01-26] MEDS: DRONABINOL 2.5 MG CAPSULE PO SCH ×2 (08:41→21:00)
[2017-01-26] MEDS: ASPIRIN 81 MG CHEWABLE TABLET PO SCH (08:42)
[2017-01-26] MEDS: CYANOCOBALAMIN (B-12) 500mcg TABLET PO SCH (08:42)
[2017-01-26] MEDS: POTASSIUM CHLORIDE 20 MEQ/15 ML ORAL LIQUID PO SCH (08:46)
[2017-01-26] MEDS: EYE LEFT EYE SCH ×8 (08:51→20:59)
[2017-01-26] MEDS: KETOROLAC 0.5% LEFT EYE SCH ×4 (08:51→20:59)
[2017-01-26] MEDS: CIPROFLOXACIN 0.3% LEFT EYE SCH ×4 (08:52→20:59)
[2017-01-26] MEDS: PrednisoLONE 1% EYE DROPS 5ml LEFT EYE SCH ×4 (08:53→20:59)
[2017-01-26] MEDS: PANTOPRAZOLE 40 MG INJECTION IVP SCH (08:55)
[2017-01-26] MEDS: BUDESONIDE/FORMOTEROL 80/4.5mcg INHALER ORAL INH SCH ×2 (08:58→20:20)
--- NOTE | 2017-01-26 09:24 | Echocardiogram ---
DATE 01/25/2017 INDICATION Nonsustained VT. Coronary artery disease with prior stents. TECHNICAL QUALITY Technically fair 2-D, M-mode, Doppler echocardiographic images were submitted for interpretation. FINDINGS 1. CARDIAC CHAMBERS. All cardiac chamber measurements are normal. Aortic root diameter is normal. RV size and contractility appear normal. 2. LEFT VENTRICLE. Wall thickness is normal. The septum appears hypokinetic. LV systolic function appears to be low-normal range. Ejection fraction is visually estimated at 50-55%. Diastolic function parameters are normal. 3. VALVES. Aortic valve exhibits normal structure and motion. Mitral valve exhibits annular calcification posteriorly. Valve excursion and leaflet structure otherwise is unremarkable. Tricuspid valve structure and motion appear normal with normal valve excursion. 4. DOPPLER. Shows normal flow velocities throughout. Trace regurgitation involving mitral and tricuspid valve is noted. Systolic PA pressure is estimated at 24 mmHg based on Bernoulli equation. 5. No evidence of pericardial effusion, intracardiac masses or demonstrable shunts. IMPRESSION 1. Normal cardiac chamber size. 2. Preserved LV systolic function with septal wall hypokinesis. EF is estimated at 50-55%. 3. No significant valvular dysfunction. 4. Mitral annular calcification. MTDD
[2017-01-26] MEDS: POTASSIUM PHOSPHATE IV SCH (12:59)
[2017-01-26] MEDS: SODIUM ACETATE IV SCH ×2 (12:59)
[2017-01-26] MEDS: D5W IV SCH (12:59)
[2017-01-26] MEDS: [UNRECOGNIZED DRUG - OTHER] IV SCH (12:59)
[2017-01-26] MEDS: SODIUM CHLORIDE IV SCH (12:59)
--- NOTE | 2017-01-26 13:00 | Pharmacy Consult-TPN/PPN ---
Pharmacy Consult-TPN/PPN - Laboratory Information Chemistry Turbidity < 20 (0-20) 01/26/17 04:44 Sodium 128 MEQ/L (134-144) L 01/26/17 04:44 Potassium 3.3 MEQ/L (3.6-5) L D 01/26/17 04:44 Chloride 104 MEQ/L (98-107) D 01/26/17 04:44 Carbon Dioxide 13 MEQ/L (22-30) L 01/26/17 04:44 Anion Gap 11 MEQ/L (5-15) 01/26/17 04:44 BUN 17.0 MG/DL (9-20) 01/26/17 04:44 Creatinine 1.6 MG/DL (0.8-1.5) H D 01/26/17 04:44 GFR Calculation 44 01/26/17 04:44 BUN/Creatinine Ratio 11 RATIO (6-26) 01/26/17 04:44 Glucose 125 MG/DL (75-110) H 01/26/17 04:44 Calculated Osmolality 250 MOSM/KG (261-280) L 01/26/17 04:44 Calcium 7.8 MG/DL (8.4-10.2) L 01/26/17 04:44 Phosphorus 3.6 MG/DL (2.5-4.5) 01/26/17 04:44 Magnesium 2.2 MG/DL (1.6-2.3) 01/26/17 04:44 Total Bilirubin 0.40 MG/DL (0.20-1.30) 01/26/17 04:44 Conjugated Bilirubin 0.00 MG/DL (0.00-0.30) 01/26/17 04:44 Unconjugated Bilirubin 0.10 MG/DL (0.00-11.10) 01/26/17 04:44 Icterus Index < 2 (0-7) 01/26/17 04:44 GGT Cancelled 01/24/17 02:50 AST 23 U/L (17-59) 01/26/17 04:44 ALT 44 U/L (21-72) 01/26/17 04:44 Alkaline Phosphatase 89 U/L (38-126) 01/26/17 04:44 Troponin I < 0.012 ng/ml (0-0.12) 01/24/17 02:54 Total Protein 5.4 G/DL (6.3-8.2) L 01/26/17 04:44 Albumin 2.9 G/DL (3.5-5.0) L 01/26/17 04:44 Globulin 2.5 G/DL (2.4-3.6) 01/26/17 04:44 Albumin/Globulin Ratio 1.2 RATIO (1.1-2.2) 01/26/17 04:44 Prealbumin 12.0 MG/DL (17.6-36.0) L 01/24/17 02:54 Lipase 319 U/L (23-300) H 01/24/17 02:54 Plasma Lactate 1.2 MMOL/L (0.6-2.2) 01/24/17 07:45 PSA Screen 0.6 ng/mL (0.0-4.5) 01/24/17 02:50 25-OH Vitamin D Total 31 ng/mL (30-100) 01/24/17 02:50 TSH 2.80 MIU/L (0.47-4.68) 01/24/17 02:54 Total Testosterone 217 ng/dL (221-716) L 01/24/17 02:50 Cortisol AM Sample 16 ug/dL (3-20) 01/24/17 07:45 Specimen Hemolysis < 15 (0-25) 01/26/17 04:44 Intake and Output 01/25/17 01/26/17 01/27/17 06:59 06:59 06:59 Intake Total 5598.4061 / 5598.4061 3502.167 / 3502.167 469.166 / 469.166 Output Total 1225 / 1225 1450 / 1450 200 / 200 Balance 4373.4061 / 4373.4061 2052.167 / 2052.167 269.166 / 269.166 Weight 47.2 kg 44.9 kg 43.5 kg Intake: IV 3988.4061 / 3988.4061 2917.167 / 2917.167 469.166 / 469.166 Intralipid 20% 100 ml @ 100 / 100 50 mls/hr IV 1600 [facility] Rx# :[id number] MAG SULF 1gm PREMIX 1 gm 71.667 / 71.667 In 100 ml @ 100 mls/hr IV Q1H [facility] Rx#:[id number] POTASSIUM CHLORIDE PREMIX 200 / 200 400 / 400 10 meq In 100 ml @ 100 mls/hr IV Q1H [facility] Rx#: [id number] K Phos Inj 15 Meq In 503.4091 / 503.4091 Dextrose 5% in Water 500 ml @ 100 mls/hr IV .Q5H3M [facility] Rx#:[id number] Sodium Acetate 100 Meq In 1050 / 1050 1802.917 / 1802.917 297.083 / 297.083 Dextrose 5% in Water 1, 000 ml @ 65 mls/hr IV . [id number] [facility] Rx#:[id number] Sodium Bicarbonate 100 2163.33 / 2163.33 Meq In Dextrose 5% in Water 1,000 ml @ 100 mls/ hr IV .Q11H [facility] Rx#: [id number] Sodium Chloride Conc 4 614.25 / 614.25 172.083 / 172.083 Meq/ml Sodium Acetate 40 Meq K Phos Inj 44 Meq Calcium Gluconate 9.3 Meq Magnesium Sulfate Inj 16 Meq Potassium Acetate Inj 40 Meq/20 ml Infuvite Adult 10 ml Multi-Trace Elements 1 ml In TPN - Custom Low Carb 2,000 ml @ 35 mls/hr IV .Q24H [facility] Rx#:[id number] Oral 1610 / 1610 585 / 585 Output: Urine 725 / 725 850 / 850 200 / 200 Stool 500 / 500 400 / 400 Emesis 200 / 200 Other: # Voids 1 1 # Bowel Movements 1 1 1 # Incontinent Bowel 1 Movements - Consult Information TPN increased to 70mls/hr today. Total of 164meq of potassium in daily bag. Also 160meq of bicarbonate supplied as a mixture of potassium and sodium salts in daily TPN bag. Will plan to change to a standard custom formulation tomorrow. Thank you.
--- NOTE | 2017-01-26 13:44 | Progress Note ---
<Alcira Garcia V - Last Filed: 01/26/17 13:22> Subjective: Mr Bella is seen today in follow up. He reports that his increased bowel patterns continues to be an annoyance as he has had 4 stools since midnight. Nursing reports hematuria has improved today. He is taking in a liquid diet and states he would like to advance. Denies abdominal pain or nausea. Ate 75% of breakfast. Remains afebrile. Objective Vital signs: Temperature 96.3 F L 01/26/17 07:43 Pulse Rate 82 01/26/17 09:27 Respiratory Rate 16 01/26/17 08:59 Blood Pressure 106/72 01/26/17 07:43 Pulse Oximetry 100 01/26/17 07:43 Oxygen Delivery Method Room Air Weight: 43.5 kg - Constitutional Present: no acute distress, thin, cachectic - Routine HEENT Exam Head: Present: normocephalic, atraumatic Eye: Present: EOMI, PERRL - Routine Respiratory Exam Present: CTA bilaterally - Routine Cardiovascular Exam Present: RRR, S1, S2 - Routine Abdominal Exam Present: soft, normoactive bowel sounds - Routine Extremities Exam Present: full ROM - Routine Back/Spine/Pelvis Exam Back/Spine: Present: full ROM - Routine Skin Exam Present: intact, dry, warm - Routine Neurological Exam Present: alert, oriented X3, CN II-XII intact - Routine Psychiatric Exam Present: normal affect, normal thought process Results - Labs CBC & Chem 7: 01/26/17 04:44 01/26/17 04:44 - ABG Interpretation ABG results: 01/23/17 01/24/17 17:45 02:54 ABG pH 7.130 L* ABG pCO2 14 L* ABG pO2 129 H ABG HCO3 5 L ABG Total CO2 5.1 L ABG O2 Saturation 98.0 ABG Base Excess -22.3 L VBG pH 7.250 L VBG pCO2 20 L VBG pO2 53 H VBG HCO3 9 L VBG Total CO2 9.4 VBG O2 Saturation 81.0 VBG Base Excess -16.4 L Assessment and Plan (1) Cachexia Current visit: Yes Status: Chronic (2) Chronic kidney disease Current visit: Yes Status: Chronic (3) Acute kidney injury superimposed on chronic kidney disease Current visit: Yes Status: Acute (4) Dehydration Current visit: Yes Status: Resolved (5) Hypertension Current visit: Yes Status: Chronic (6) Ventricular tachycardia Current visit: Yes Status: Resolved (7) Hypophosphatemia Current visit: Yes Status: Acute (8) Hypomagnesemia Current visit: Yes Status: Acute (9) Hypokalemia Current visit: Yes Status: Acute (10) Hyponatremia Current visit: Yes Status: Acute (11) Malnutrition due to starvation Current visit: Yes Status: Chronic Assessment and Plan: 01/26/17 Malnutrition Hypokalemia- acute Hyponatremia- acute Hematuria- acute Leukocytosis-acute Bradycardia Hypertension History of V. tach Electrolyte abnormalities Congestive heart failure Asthma History of hepatitis C History of celiac disease Rheumatoid arthritis Tobacco use disorder Plan Malnutrition is a concern - suspect malabsorption. Continue with TPN as well as oral intake. Electrolytes remain abnormal, Potassium increased to 3.3, however. Sodium did decrease to 128 Will add Questran PRN to assist with increase bowel movements CT abd does reveal diffuse fluid-filled small and large bowel along with hepatic steatosis. This could be related to known history of celiac disease Echocardiogram was obtained reveling 1. Normal cardiac chamber size. 2. Preserved LV systolic function with septal wall hypokinesis. EF is estimated at 50-55%. 3. No significant valvular dysfunction. 4. Mitral annular calcification. Appreciate consultation by Dr. Lara in regards to hematuria. Patient will likely need to follow-up in the outpatient setting for cystoscopy Will discuss further orders and plan of care with attending, Dr. Newsome Sepsis Assessment - Evaluation Sepsis screening result: No Definite Risk Hospital Course Summary Disclaimer: The visit summary below is not to be considered part of the above Progress Note. Hospital Course: 01/26/17 Malnutrition Hypokalemia- acute Hyponatremia- acute Hematuria- acute Leukocytosis-acute Bradycardia Hypertension History of V. tach Electrolyte abnormalities Congestive heart failure Asthma History of hepatitis C History of celiac disease Rheumatoid arthritis Tobacco use disorder Plan Malnutrition is a concern - suspect malabsorption. Continue with TPN as well as oral intake. Electrolytes remain abnormal, Potassium increased to 3.3, however. Sodium did decrease to 128 Will add Questran PRN to assist with increase bowel movements CT abd does reveal diffuse fluid-filled small and large bowel along with hepatic steatosis. This could be related to known history of celiac disease Echocardiogram was obtained reveling 1. Normal cardiac chamber size. 2. Preserved LV systolic function with septal wall hypokinesis. EF is estimated at 50-55%. 3. No significant valvular dysfunction. 4. Mitral annular calcification. Appreciate consultation by Dr. Lara in regards to hematuria. Patient will likely need to follow-up in the outpatient setting for cystoscopy Will discuss further orders and plan of care with attending, Dr. Newsome <JerodSherrie - Last Filed: 01/26/17 21:36> Objective Vital signs: Temperature 96.1 F L 01/26/17 15:42 Pulse Rate 79 01/26/17 16:00 Respiratory Rate 18 01/26/17 20:18 Blood Pressure 130/81 01/26/17 15:42 Pulse Oximetry 100 01/26/17 15:42 Oxygen Delivery Method Room Air Results - Labs CBC & Chem 7: 01/26/17 04:44 01/26/17 04:44 - ABG Interpretation ABG results: 01/23/17 01/24/17 17:45 02:54 ABG pH 7.130 L* ABG pCO2 14 L* ABG pO2 129 H ABG HCO3 5 L ABG Total CO2 5.1 L ABG O2 Saturation 98.0 ABG Base Excess -22.3 L VBG pH 7.250 L VBG pCO2 20 L VBG pO2 53 H VBG HCO3 9 L VBG Total CO2 9.4 VBG O2 Saturation 81.0 VBG Base Excess -16.4 L Assessment and Plan (1) Diarrhea Current visit: Yes Status: Acute (2) Acute kidney injury superimposed on chronic kidney disease Current visit: Yes Status: Acute (3) Malabsorption syndrome Current visit: Yes Status: Chronic (4) Malnutrition due to starvation Current visit: Yes Status: Chronic (5) Cachexia Current visit: Yes Status: Chronic (6) Chronic kidney disease Current visit: Yes Status: Chronic (7) Dehydration Current visit: Yes Status: Resolved (8) Hypertension Current visit: Yes Status: Chronic (9) Hypophosphatemia Current visit: Yes Status: Acute (10) Hypomagnesemia Current visit: Yes Status: Acute (11) Hypokalemia Current visit: Yes Status: Acute (12) Hyponatremia Current visit: Yes Status: Acute Resuscitation Status: Full Code Assessment and Plan: I have independently evaluated and examined this patient. I reviewed the chart, the patient's history, and the ACID LEVELER's documented findings as above. We discussed and formulated the assessment and plan as above with additions as below: Mr. Bella complains of his hands cramping today and 15-20 watery stools in the past 24 hours. He hopes to resume solid foods indicating that stools are more formed when he has solid foods. He complains of pain "in the lateral pancreas". He has a history of pancreatitis. He denied fevers. The patient is alert and has marked temporal wasting. Respirations are nonlabored. Abdomen is soft with mild tenderness primarily in the epigastrium and left upper quadrant, no guarding present Multiple electrolyte abnormalities present as noted previously; potassium supplemented earlier in majority of electrolytes being managed via TPN. Persistent metabolic acidosis. Past GI evaluation at [facility] included nondetectable hepatitis C viral load in October 2015 and confirmation of celiac disease serology and duodenal biopsy. Patient was counseled on gluten- free diet at that time. 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 Budesonide was prescribed at 9 mg daily. We'll need to clarify response to steroids with patient as he may benefit from resuming therapy. Advance diet, dietary consult to review celiac restrictions. Will require gluten -free diet while hospitalized. CT of the abdomen/pelvis [id number] loops of bowel present, no pancreatic calcifications evident nor peripancreatic edema/inflammation. Outpatient records reviewed, CT reviewed by myself, laboratory data reviewed. Patient at high risk for complications. Hospital Course Summary Disclaimer: The visit summary below is not to be considered part of the above Progress Note.
[2017-01-26 15:03] VITALS: BMI 14.6
[2017-01-26] MEDS: CHOLESTYRAMINE LIGHT 4 G PACKET PO PRN (15:09)
[2017-01-26] MEDS: FAT EMULSION 20% 100 ML IV SCH (15:09)
[2017-01-26] MEDS: TAMSULOSIN 0.4 MG CAPSULE PO SCH (21:00)
[2017-01-26] MEDS: MIRTAZAPINE 15 MG TABLET PO SCH (21:00)
[2017-01-26] MEDS ORDERED: PRAMIPEXOLE 0.5 MG TABLET PO SCH (22:00)
[2017-01-27] MEDS: SALINE FLUSH 10ml SYRINGE IVF PRN ×2 (05:13→21:11)
[2017-01-27] MEDS: PRAMIPEXOLE 1 MG TABLET PO SCH ×4 (07:45→21:13)
[2017-01-27] MEDS: POTASSIUM CHLORIDE 20 MEQ/15 ML ORAL LIQUID PO SCH (07:45)
--- NOTE | 2017-01-27 08:01 | Pharmacy Consult-TPN/PPN ---
Pharmacy Consult-TPN/PPN - Laboratory Information Chemistry Turbidity < 20 (0-20) 01/27/17 05:08 Sodium 129 MEQ/L (134-144) L 01/27/17 05:08 Potassium 4.2 MEQ/L (3.6-5) D 01/27/17 05:08 Chloride 104 MEQ/L (98-107) 01/27/17 05:08 Carbon Dioxide 19 MEQ/L (22-30) L D 01/27/17 05:08 Anion Gap 6 MEQ/L (5-15) 01/27/17 05:08 BUN 19.0 MG/DL (9-20) 01/27/17 05:08 Creatinine 1.4 MG/DL (0.8-1.5) D 01/27/17 05:08 GFR Calculation 51 01/27/17 05:08 BUN/Creatinine Ratio 14 RATIO (6-26) 01/27/17 05:08 Glucose 88 MG/DL (75-110) 01/27/17 05:08 Calculated Osmolality 250 MOSM/KG (261-280) L 01/27/17 05:08 Calcium 8.1 MG/DL (8.4-10.2) L 01/27/17 05:08 Phosphorus 3.6 MG/DL (2.5-4.5) 01/26/17 04:44 Magnesium 2.2 MG/DL (1.6-2.3) 01/26/17 04:44 Total Bilirubin 0.40 MG/DL (0.20-1.30) 01/27/17 05:08 Conjugated Bilirubin 0.00 MG/DL (0.00-0.30) 01/26/17 04:44 Unconjugated Bilirubin 0.10 MG/DL (0.00-11.10) 01/26/17 04:44 Icterus Index < 2 (0-7) 01/27/17 05:08 GGT Cancelled 01/24/17 02:50 AST 20 U/L (17-59) 01/27/17 05:08 ALT 42 U/L (21-72) 01/27/17 05:08 Alkaline Phosphatase 78 U/L (38-126) 01/27/17 05:08 Troponin I < 0.012 ng/ml (0-0.12) 01/24/17 02:54 Total Protein 5.1 G/DL (6.3-8.2) L 01/27/17 05:08 Albumin 2.7 G/DL (3.5-5.0) L 01/27/17 05:08 Globulin 2.4 G/DL (2.4-3.6) 01/27/17 05:08 Albumin/Globulin Ratio 1.1 RATIO (1.1-2.2) 01/27/17 05:08 Prealbumin 12.0 MG/DL (17.6-36.0) L 01/24/17 02:54 Lipase 319 U/L (23-300) H 01/24/17 02:54 Plasma Lactate 1.2 MMOL/L (0.6-2.2) 01/24/17 07:45 PSA Screen 0.6 ng/mL (0.0-4.5) 01/24/17 02:50 Vitamin B12 167 PG/ML (239-931) L 01/24/17 02:54 25-OH Vitamin D Total 31 ng/mL (30-100) 01/24/17 02:50 TSH 2.80 MIU/L (0.47-4.68) 01/24/17 02:54 Total Testosterone 217 ng/dL (221-716) L 01/24/17 02:50 Cortisol AM Sample 16 ug/dL (3-20) 01/24/17 07:45 Specimen Hemolysis < 15 (0-25) 01/27/17 05:08 Intake and Output 01/26/17 01/27/17 01/28/17 06:59 06:59 06:59 Intake Total 3502.167 / 3502.167 3994.166 / 3994.166 Output Total 1450 / 1450 1600 / 1600 Balance 2052.167 / 2052.167 2394.166 / 2394.166 Weight 44.9 kg 43.5 kg 44.6 kg Intake: IV 2917.167 / 2917.167 2254.166 / 2254.166 Intralipid 20% 100 ml @ 100 / 100 100 / 100 50 mls/hr IV 1600 [facility] Rx# :[id number] POTASSIUM CHLORIDE PREMIX 400 / 400 10 meq In 100 ml @ 100 mls/hr IV Q1H [facility] Rx#: [id number] Sodium Acetate 100 Meq In 1802.917 / 1802.917 802.583 / 802.583 Dextrose 5% in Water 1, 000 ml @ 30 mls/hr IV . Q24H [facility] Rx#:[id number] Sodium Chloride Conc 4 614.25 / 614.25 1351.583 / 1351.583 Meq/ml Sodium Acetate 60 Meq K Phos Inj 44 Meq Calcium Gluconate 9.3 Meq Magnesium Sulfate Inj 16 Meq Potassium Acetate Inj 40 Meq/20 ml Infuvite Adult 10 ml Multi-Trace Elements 1 ml In TPN - Custom Low Carb 2,000 ml @ 70 mls/hr IV .Q24H [facility] Rx#:[id number] Oral 585 / 585 1740 / 1740 Output: Urine 850 / 850 1600 / 1600 Stool 400 / 400 Emesis 200 / 200 Other: # Voids 1 1 # Bowel Movements 1 1 - Consult Information Will switch to a custom standard formula today as Mr Bella has tolerated the TPN well. Electrolytes will be the same except for 40meq additional sodium chloride and 20meq less of potassium acetate. Pharmacy to continue to monitor. Thank you.
[2017-01-27] MEDS: BUDESONIDE/FORMOTEROL 80/4.5mcg INHALER ORAL INH SCH ×2 (08:19→19:58)
[2017-01-27] MEDS: DRONABINOL 2.5 MG CAPSULE PO SCH ×2 (09:27→21:15)
[2017-01-27] MEDS: SODIUM BICARBONATE 650 MG TABLET PO SCH ×2 (09:27→21:12)
[2017-01-27] MEDS: MAGNESIUM OXIDE 400 MG TABLET PO SCH ×2 (09:27→21:13)
[2017-01-27] MEDS: CYANOCOBALAMIN (B-12) 500mcg TABLET PO SCH (09:27)
[2017-01-27] MEDS: KETOROLAC 0.5% LEFT EYE SCH ×4 (09:28→21:16)
[2017-01-27] MEDS: PrednisoLONE 1% EYE DROPS 5ml LEFT EYE SCH ×4 (09:28→21:16)
[2017-01-27] MEDS: ASPIRIN 81 MG CHEWABLE TABLET PO SCH (09:28)
[2017-01-27] MEDS: EYE LEFT EYE SCH ×8 (09:28→21:17)
[2017-01-27] MEDS: CIPROFLOXACIN 0.3% LEFT EYE SCH ×4 (09:29→21:17)
[2017-01-27] MEDS: Oxycodone *IR* 15 MG TABLET PO PRN (09:35)
[2017-01-27] MEDS: FAMOTIDINE 20 MG TABLET PO SCH (09:35)
--- NOTE | 2017-01-27 14:56 | Progress Note ---
<Alcira Garcia V - Last Filed: 01/27/17 14:53> Subjective: Hermilo is seen today in follow-up. He appears to be in much better spirits today. States that his appetite has improved and his diarrhea has lessened significantly today. No reported stool in the last 15 hour. He denies having any pain or shortness of breath. Discussed diagnosis of celiac disease and dietary recommendations. Patient verbalizes his concern with such severe lifestyle changes. Objective Vital signs: Temperature 97.0 F 01/27/17 07:24 Pulse Rate 80 01/27/17 07:24 Respiratory Rate 16 01/27/17 08:19 Blood Pressure 117/71 01/27/17 07:24 Pulse Oximetry 100 01/27/17 07:24 Oxygen Delivery Method Room Air Weight: 44.6 kg - Constitutional Present: no acute distress - Routine HEENT Exam Head: Present: normocephalic, atraumatic Eye: Present: EOMI, PERRL ENT: Present: mucous membranes moist - Routine Respiratory Exam Present: CTA bilaterally - Routine Cardiovascular Exam Present: RRR, S1, S2 - Routine Abdominal Exam Present: soft, normoactive bowel sounds, non distended - Routine Extremities Exam Present: full ROM - Routine Back/Spine/Pelvis Exam Back/Spine: Present: full ROM - Routine Skin Exam Present: intact, dry, warm - Routine Neurological Exam Present: alert, oriented X3, CN II-XII intact, moving all extremities - Routine Psychiatric Exam Present: normal affect, normal thought process Results - Labs CBC & Chem 7: 01/26/17 04:44 01/27/17 05:08 - ABG Interpretation ABG results: 01/23/17 01/24/17 17:45 02:54 ABG pH 7.130 L* ABG pCO2 14 L* ABG pO2 129 H ABG HCO3 5 L ABG Total CO2 5.1 L ABG O2 Saturation 98.0 ABG Base Excess -22.3 L VBG pH 7.250 L VBG pCO2 20 L VBG pO2 53 H VBG HCO3 9 L VBG Total CO2 9.4 VBG O2 Saturation 81.0 VBG Base Excess -16.4 L Assessment and Plan (1) Diarrhea Current visit: Yes Status: Acute (2) Cachexia Current visit: Yes Status: Chronic (3) Chronic kidney disease Current visit: Yes Status: Chronic (4) Acute kidney injury superimposed on chronic kidney disease Current visit: Yes Status: Acute (5) Dehydration Current visit: Yes Status: Resolved (6) Hypertension Current visit: Yes Status: Chronic (7) Hypophosphatemia Current visit: Yes Status: Acute (8) Hypomagnesemia Current visit: Yes Status: Acute (9) Hypokalemia Current visit: Yes Status: Acute (10) Hyponatremia Current visit: Yes Status: Acute (11) Malnutrition due to starvation Current visit: Yes Status: Chronic (12) Malabsorption syndrome Current visit: Yes Status: Chronic Assessment and Plan: 01/27/17 Overall, clinically loose is feeling better today. Diarrhea stools have decreased significantly. Has only had one stool in the last 15 hours and has not been requiring Questran today. He is tolerating a soft diet without any difficulties. He continues to receive TPN for additional nutrition. Patient is up 2 Kg since admission. Did have dietary education with discussion regarding celiac disease and dietary modifications including eating gluten-free Continue to monitor electrolytes, Sodium remains low at 129, Hypokalemia has resolved. Director Of Institutional Research improving. Will discuss further orders and plan of care with Dr Newsome Sepsis Assessment - Evaluation Sepsis screening result: No Definite Risk Hospital Course Summary Disclaimer: The visit summary below is not to be considered part of the above Progress Note. Hospital Course: 01/26/17 Malnutrition Hypokalemia- acute Hyponatremia- acute Hematuria- acute Leukocytosis-acute Bradycardia Hypertension History of V. tach Electrolyte abnormalities Congestive heart failure Asthma History of hepatitis C History of celiac disease Rheumatoid arthritis Tobacco use disorder Plan Malnutrition is a concern - suspect malabsorption. Continue with TPN as well as oral intake. Electrolytes remain abnormal, Potassium increased to 3.3, however. Sodium did decrease to 128 Will add Questran PRN to assist with increase bowel movements CT abd does reveal diffuse fluid-filled small and large bowel along with hepatic steatosis. This could be related to known history of celiac disease Echocardiogram was obtained reveling 1. Normal cardiac chamber size. 2. Preserved LV systolic function with septal wall hypokinesis. EF is estimated at 50-55%. 3. No significant valvular dysfunction. 4. Mitral annular calcification. Appreciate consultation by Dr. Lara in regards to hematuria. Patient will likely need to follow-up in the outpatient setting for cystoscopy 01/27/17 Overall, clinically loose is feeling better today. Diarrhea stools have decreased significantly. Has only had one stool in the last 15 hours and has not been requiring Questran today. He is tolerating a soft diet without any difficulties. He continues to receive TPN for additional nutrition. Patient is up 2 Kg since admission. Did have dietary education with discussion regarding celiac disease and dietary modifications including eating gluten-free Continue to monitor electrolytes, Sodium remains low at 129, Hypokalemia has resolved. Director Of Institutional Research improving. Will discuss further orders and plan of care with Dr Newsome <Sherrie Newsome - Last Filed: 01/27/17 21:42> Objective Vital signs: Temperature 97.1 F 01/27/17 14:57 Pulse Rate 67 01/27/17 14:57 Respiratory Rate 18 01/27/17 19:58 Blood Pressure 146/78 H 01/27/17 14:57 Pulse Oximetry 100 01/27/17 14:57 Oxygen Delivery Method Room Air Results - Labs CBC & Chem 7: 01/26/17 04:44 01/27/17 05:08 - ABG Interpretation ABG results: 01/23/17 01/24/17 17:45 02:54 ABG pH 7.130 L* ABG pCO2 14 L* ABG pO2 129 H ABG HCO3 5 L ABG Total CO2 5.1 L ABG O2 Saturation 98.0 ABG Base Excess -22.3 L VBG pH 7.250 L VBG pCO2 20 L VBG pO2 53 H VBG HCO3 9 L VBG Total CO2 9.4 VBG O2 Saturation 81.0 VBG Base Excess -16.4 L Assessment and Plan (1) Adult celiac disease Current visit: Yes Status: Chronic (2) Diarrhea Current visit: Yes Status: Acute (3) Acute kidney injury superimposed on chronic kidney disease Current visit: Yes Status: Acute (4) Malabsorption syndrome Current visit: Yes Status: Chronic (5) Malnutrition due to starvation Current visit: Yes Status: Chronic (6) Cachexia Current visit: Yes Status: Chronic (7) Chronic kidney disease Current visit: Yes Status: Chronic (8) Dehydration Current visit: Yes Status: Resolved (9) Hypertension Current visit: Yes Status: Chronic (10) Hypophosphatemia Current visit: Yes Status: Acute (11) Hypomagnesemia Current visit: Yes Status: Acute (12) Hypokalemia Current visit: Yes Status: Acute (13) Hyponatremia Current visit: Yes Status: Acute Assessment and Plan: I have independently evaluated and examined this patient. I reviewed the chart, the patient's history, and the SPECIAL EDUCATION EDUCATIONAL ASSISTANT's documented findings as above. We discussed and formulated the assessment and plan as above with additions as below: Outpatient records of prior GI evaluation [facility] by Dr. Lisa Hoff were reviewed in detail last night and this morning. Patient has clear-cut diagnosis of celiac-sprue and has received prior dietary counseling regarding gluten-free diet. With this was discussed with him the same to regard this is new information and described ongoing diet with multiple week containing foods. Furthermore he seemed reluctant to make significant dietary changes initially although with further discussion began considering alternatives. He reports he feels quite good today and has had no diarrhea or bowel movements at all when seen this morning. Hematuria has resolved. Patient was ambulating in the room independently. He was in no distress. Abdomen was soft and nontender. Malabsorption with diarrhea/weight loss/multiple electrolyte abnormalities- diagnosis of celiac disease previously confirmed. At that time the patient also had nonspecific ileitis by biopsy of the terminal ileum and was treated with steroids. He vaguely recalls being placed on some pills but doesn't know if they worked however given lack of compliance with gluten-free diet it's unlikely that patient would have noted any symptomatic improvement. Dietary counseling today regarding gluten-free diet. Dietary review by myself indicates significant modification of diet will be needed. Continue TPN, check phosphorus in the morning due to risk of refeeding phenomenon. B-12 167-replace IM due to malabsorption. Weight stable during hospitalization. Hospital Course Summary Disclaimer: The visit summary below is not to be considered part of the above Progress Note.
[2017-01-27] MEDS: [UNRECOGNIZED DRUG - OTHER] IV SCH (16:41)
[2017-01-27] MEDS: SODIUM CHLORIDE IV SCH (16:41)
[2017-01-27] MEDS: SODIUM ACETATE IV SCH ×2 (16:41→19:28)
[2017-01-27] MEDS: POTASSIUM PHOSPHATE IV SCH (16:41)
[2017-01-27] MEDS: FAT EMULSION 20% 100 ML IV SCH (17:05)
[2017-01-27] MEDS: [UNRECOGNIZED DRUG - NUTRITION] IV SCH (18:57)
[2017-01-27] MEDS: D5W IV SCH (19:28)
[2017-01-27] MEDS: MIRTAZAPINE 15 MG TABLET PO SCH (21:13)
[2017-01-27] MEDS: TAMSULOSIN 0.4 MG CAPSULE PO SCH (21:13)
[2017-01-27] MEDS: CHOLESTYRAMINE LIGHT 4 G PACKET PO PRN (21:16)
[2017-01-28] MEDS: SALINE FLUSH 10ml SYRINGE IVF PRN ×2 (04:21→22:14)
[2017-01-28] MEDS: BUDESONIDE/FORMOTEROL 80/4.5mcg INHALER ORAL INH SCH ×2 (07:37→21:01)
--- NOTE | 2017-01-28 08:01 | Pharmacy Consult-TPN/PPN ---
Pharmacy Consult-TPN/PPN - Laboratory Information Chemistry Turbidity < 20 (0-20) 01/28/17 04:18 Sodium 128 MEQ/L (134-144) L 01/28/17 04:18 Potassium 5.0 MEQ/L (3.6-5) D 01/28/17 04:18 Chloride 101 MEQ/L (98-107) 01/28/17 04:18 Carbon Dioxide 25 MEQ/L (22-30) D 01/28/17 04:18 Anion Gap 2 MEQ/L (5-15) L 01/28/17 04:18 BUN 20.0 MG/DL (9-20) 01/28/17 04:18 Creatinine 1.1 MG/DL (0.8-1.5) D 01/28/17 04:18 GFR Calculation 67 01/28/17 04:18 BUN/Creatinine Ratio 18 RATIO (6-26) 01/28/17 04:18 Glucose 77 MG/DL (75-110) 01/28/17 04:18 Calculated Osmolality 249 MOSM/KG (261-280) L 01/28/17 04:18 Calcium 7.9 MG/DL (8.4-10.2) L 01/28/17 04:18 Phosphorus 1.1 MG/DL (2.5-4.5) L 01/28/17 04:18 Magnesium 2.1 MG/DL (1.6-2.3) 01/28/17 04:18 Total Bilirubin 0.40 MG/DL (0.20-1.30) 01/27/17 05:08 Conjugated Bilirubin 0.00 MG/DL (0.00-0.30) 01/26/17 04:44 Unconjugated Bilirubin 0.10 MG/DL (0.00-11.10) 01/26/17 04:44 Icterus Index < 2 (0-7) 01/28/17 04:18 GGT Cancelled 01/24/17 02:50 AST 20 U/L (17-59) 01/27/17 05:08 ALT 42 U/L (21-72) 01/27/17 05:08 Alkaline Phosphatase 78 U/L (38-126) 01/27/17 05:08 Troponin I < 0.012 ng/ml (0-0.12) 01/24/17 02:54 Total Protein 5.1 G/DL (6.3-8.2) L 01/27/17 05:08 Albumin 2.7 G/DL (3.5-5.0) L 01/27/17 05:08 Globulin 2.4 G/DL (2.4-3.6) 01/27/17 05:08 Albumin/Globulin Ratio 1.1 RATIO (1.1-2.2) 01/27/17 05:08 Prealbumin 12.0 MG/DL (17.6-36.0) L 01/24/17 02:54 Lipase 319 U/L (23-300) H 01/24/17 02:54 Plasma Lactate 1.2 MMOL/L (0.6-2.2) 01/24/17 07:45 PSA Screen 0.6 ng/mL (0.0-4.5) 01/24/17 02:50 Vitamin B12 167 PG/ML (239-931) L 01/24/17 02:54 25-OH Vitamin D Total 31 ng/mL (30-100) 01/24/17 02:50 TSH 2.80 MIU/L (0.47-4.68) 01/24/17 02:54 Total Testosterone 217 ng/dL (221-716) L 01/24/17 02:50 Cortisol AM Sample 16 ug/dL (3-20) 01/24/17 07:45 Specimen Hemolysis < 15 (0-25) 01/28/17 04:18 Intake and Output 01/27/17 01/28/17 01/29/17 06:59 06:59 06:59 Intake Total 3994.166 / 3994.166 3188.0 / 3188.0 Output Total 1600 / 1600 1425 / 1425 Balance 2394.166 / 2394.166 1763.0 / 1763.0 Weight 43.5 kg 44.6 kg 47.4 kg Intake: IV 2254.166 / 2254.166 1558.0 / 1558.0 Intralipid 20% 100 ml @ 100 / 100 100 / 100 50 mls/hr IV 1600 [facility] Rx# :[id number] Sodium Acetate 100 Meq In 802.583 / 802.583 485 / 485 Dextrose 5% in Water 1, 000 ml @ 30 mls/hr IV . Q24H [facility] Rx#:[id number] Sodium Chloride Conc 4 1351.583 / 1351.583 759.5 / 759.5 Meq/ml Sodium Acetate 60 Meq K Phos Inj 44 Meq Calcium Gluconate 9.3 Meq Magnesium Sulfate Inj 16 Meq Potassium Acetate Inj 40 Meq/20 ml Infuvite Adult 10 ml Multi-Trace Elements 1 ml In TPN - Custom Low Carb 2,000 ml @ 70 mls/hr IV .Q24H [facility] Rx#:[id number] Sodium Chloride Conc 4 213.5 / 213.5 Meq/ml Sodium Acetate 60 Meq K Phos Inj 44 Meq Magnesium Sulfate Inj 16 Meq Potassium Acetate Inj 40 Meq/20 ml Infuvite Adult 10 ml Multi-Trace Elements 1 ml In TPN - Custom Formula 2,000 ml @ 70 mls/hr IV .Q24H [facility] Rx#:[id number] Oral 1740 / 1740 1630 / 1630 Output: Urine 1600 / 1600 275 / 275 Urine Amount (Catheter) 1150 / 1150 Other: # Voids 1 0 # Bowel Movements 1 2 DAY 4 OF TPN THERAPY: Receiving TPN Custom Formula @ 70ml/hr, along with Fat Emulsion 20% 100ml to prevent EFAD. This gives approximately 1615 kcal per day total. Currently not on a sliding scale insulin, but BS's are WNL's. Wt stable at 47.4 kg this am. Sodium low, Potassium had significant increase, Phosphate significant decrease, Chloride on low normal, all other electrolytes OK. Will make the following changes to the formula: 1. Continue the NaCl at 100mEq per bag. 2. Increase the NaAcetate to 80mEq. 3. Remove the K Phosphate. 4. Remove the K Acetate. 5. Add Na Phosphate 80mEq per bag. 6. Continue the Mag, Ca, MVI and Trace Elements the same. Also receiving the following oral medications: - Mag oxide 400mg po bid - KCL 20mEq po daily - Sodium Bicarb 650mg po bid And a Sodium Acetate 100mEq in D5W 1000ml IV, running at 30ml/hr (3/4 bag received each day = approx 75mEq of Na Acetate) Thank you
[2017-01-28] MEDS ORDERED: SODIUM PHOSPHATE IV SCH (08:45)
[2017-01-28] MEDS ORDERED: NS IV SCH (08:45)
[2017-01-28] MEDS: POTASSIUM CHLORIDE 20 MEQ/15 ML ORAL LIQUID PO SCH (08:47)
[2017-01-28] MEDS: CYANOCOBALAMIN (B-12) 1,000mcg/ml INJECTION IM SCH (08:47)
[2017-01-28] MEDS: CIPROFLOXACIN 0.3% LEFT EYE SCH ×4 (08:48→21:56)
[2017-01-28] MEDS: EYE LEFT EYE SCH ×8 (08:48→21:56)
[2017-01-28] MEDS: KETOROLAC 0.5% LEFT EYE SCH ×4 (08:48→21:55)
[2017-01-28] MEDS: PrednisoLONE 1% EYE DROPS 5ml LEFT EYE SCH ×4 (08:48→21:56)
[2017-01-28] MEDS: DRONABINOL 2.5 MG CAPSULE PO SCH ×2 (08:49→21:54)
[2017-01-28] MEDS: SODIUM BICARBONATE 650 MG TABLET PO SCH ×2 (08:49→21:54)
[2017-01-28] MEDS: MAGNESIUM OXIDE 400 MG TABLET PO SCH ×2 (08:50→21:55)
[2017-01-28] MEDS: PRAMIPEXOLE 1 MG TABLET PO SCH ×4 (08:50→21:58)
[2017-01-28] MEDS: FAMOTIDINE 20 MG TABLET PO SCH (08:50)
[2017-01-28] MEDS: ASPIRIN 81 MG CHEWABLE TABLET PO SCH (08:50)
[2017-01-28] MEDS: CYANOCOBALAMIN (B-12) 500mcg TABLET PO SCH (09:50)
[2017-01-28] MEDS: FAT EMULSION 20% 100 ML IV SCH (17:02)
[2017-01-28] MEDS: [UNRECOGNIZED DRUG - NUTRITION] IV SCH (17:57)
--- NOTE | 2017-01-28 20:06 | Progress Note ---
Subjective: Anam reports that he feels good today. He continues to have some pain in his pancreas that he considers normal and is having some loose stools but the number of stools in the stool volume is much improved from prehospitalization. He thinks he had about 3 stools overnight. He denies lightheadedness or dizziness. He denied dyspnea, fever, palpitations. Weakness is improving progressively increased been ambulating in the halls with assistance. Appetite is good and he is studying gluten-free dietary information. Objective Vital signs: Temperature 99.0 F 01/28/17 15:18 Pulse Rate 86 01/28/17 15:18 Respiratory Rate 17 01/28/17 15:18 Blood Pressure 138/73 01/28/17 15:18 Pulse Oximetry 99 01/28/17 15:18 Oxygen Delivery Method Room Air NAD, alert, cooperative, fluent speech Conjunctiva clear, sclera anicteric, EOMI Respirations nonlabored, diminished airflow, breath sounds clear Regular rhythm, S1-S2 Abdomen soft, nontender, normal bowel sounds No edema Weight: 47.4 kg Results - Labs CBC & Chem 7: 01/26/17 04:44 01/28/17 04:18 Labs: Phosphorus 1.1, magnesium 2.1 - ABG Interpretation ABG results: 01/23/17 01/24/17 17:45 02:54 ABG pH 7.130 L* ABG pCO2 14 L* ABG pO2 129 H ABG HCO3 5 L ABG Total CO2 5.1 L ABG O2 Saturation 98.0 ABG Base Excess -22.3 L VBG pH 7.250 L VBG pCO2 20 L VBG pO2 53 H VBG HCO3 9 L VBG Total CO2 9.4 VBG O2 Saturation 81.0 VBG Base Excess -16.4 L Assessment and Plan (1) Adult celiac disease Current visit: Yes Status: Chronic (2) Diarrhea Current visit: Yes Status: Acute (3) Acute kidney injury superimposed on chronic kidney disease Current visit: Yes Status: Acute (4) Malabsorption syndrome Current visit: Yes Status: Chronic (5) Malnutrition due to starvation Current visit: Yes Status: Chronic (6) Cachexia Current visit: Yes Status: Chronic (7) Chronic kidney disease Current visit: Yes Status: Chronic (8) Dehydration Current visit: Yes Status: Resolved (9) Hypertension Current visit: Yes Status: Chronic (10) Hypophosphatemia Current visit: Yes Status: Acute (11) Hypomagnesemia Current visit: Yes Status: Acute (12) Hypokalemia Current visit: Yes Status: Acute (13) Hyponatremia Current visit: Yes Status: Acute Assessment and Plan: Celiac disease, uncontrolled due to dietary noncompliance Malnutrition/malabsorption Hypophosphatemia-acute Hyponatremia-acute Metabolic acidosis Hypokalemia- acute Hyponatremia- acute Hematuria-resolved Leukocytosis-acute B-12 deficiency-likely due to malabsorption Bradycardia Hypertension History of V. tach Congestive heart failure, history Asthma Low testosterone level-defer to outpatient management/further evaluation History of hepatitis C Rheumatoid arthritis Tobacco use disorder Oral intake continues to improve, tolerating gluten-free diet with some but controllable diarrhea. Reassess weight tomorrow, may be able to begin titrating off TPN. Acetate shortage has required eliminating sodium acetate infusion, sodium acetate increased slightly but potassium acetate discontinued in TPN, sodium phosphate added to TPN and supplemental infusion given due to marked hypophosphatemia-likely refeeding hypophosphatemia. Continue oral sodium bicarbonate tablets. Increase activities. Approaching discharge. Gluten-free diet and need to follow the diet faithfully again discussed with the patient. Hepatitis C viral RNA not detected-similar to testing 2 years ago by gastroenterology. Testing for celiac disease pending however previously positive with high titer. Nursing provide supplemental history, discussed with pharmacy, multiple labs/ medications modified. Sepsis Assessment - Evaluation Sepsis screening result: No Definite Risk Hospital Course Summary Disclaimer: The visit summary below is not to be considered part of the above Progress Note. Hospital Course: 01/26/17 Malnutrition Hypokalemia- acute Hyponatremia- acute Hematuria- acute Leukocytosis-acute Bradycardia Hypertension History of V. tach Electrolyte abnormalities Congestive heart failure Asthma History of hepatitis C History of celiac disease Rheumatoid arthritis Tobacco use disorder Plan Malnutrition is a concern - suspect malabsorption. Continue with TPN as well as oral intake. Electrolytes remain abnormal, Potassium increased to 3.3, however. Sodium did decrease to 128 Will add Questran PRN to assist with increase bowel movements CT abd does reveal diffuse fluid-filled small and large bowel along with hepatic steatosis. This could be related to known history of celiac disease Echocardiogram was obtained reveling 1. Normal cardiac chamber size. 2. Preserved LV systolic function with septal wall hypokinesis. EF is estimated at 50-55%. 3. No significant valvular dysfunction. 4. Mitral annular calcification. Appreciate consultation by Dr. Lara in regards to hematuria. Patient will likely need to follow-up in the outpatient setting for cystoscopy 01/27/17 Overall, clinically loose is feeling better today. Diarrhea stools have decreased significantly. Has only had one stool in the last 15 hours and has not been requiring Questran today. He is tolerating a soft diet without any difficulties. He continues to receive TPN for additional nutrition. Patient is up 2 Kg since admission. Did have dietary education with discussion regarding celiac disease and dietary modifications including eating gluten-free Continue to monitor electrolytes, Sodium remains low at 129, Hypokalemia has resolved. 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 Will discuss further orders and plan of care with Dr Newsome 01/28/17 20:18 Oral intake continues to improve, tolerating gluten-free diet with some but controllable diarrhea. Reassess weight tomorrow, may be able to begin titrating off TPN. Acetate shortage has required eliminating sodium acetate infusion, sodium acetate increased slightly but potassium acetate discontinued in TPN, sodium phosphate added to TPN and supplemental infusion given due to marked hypophosphatemia-likely refeeding hypophosphatemia. Continue oral sodium bicarbonate tablets. Increase activities. Approaching discharge. Gluten-free diet and need to follow the diet faithfully again discussed with the patient. Hepatitis C viral RNA not detected-similar to testing 2 years ago by gastroenterology. Testing for celiac disease pending however previously positive with high titer.
[2017-01-28] MEDS: MIRTAZAPINE 15 MG TABLET PO SCH (21:55)
[2017-01-28] MEDS: TAMSULOSIN 0.4 MG CAPSULE PO SCH (21:55)
[2017-01-28] MEDS: Oxycodone *IR* 15 MG TABLET PO PRN (22:10)
[2017-01-28] MEDS: SODIUM PHOSPHATE IV SCH (22:12)
[2017-01-28] MEDS: [UNRECOGNIZED DRUG - OTHER] IV SCH (22:12)
[2017-01-28] MEDS: SODIUM ACETATE IV SCH (22:12)
[2017-01-28] MEDS: SODIUM CHLORIDE IV SCH (22:12)
[2017-01-29] MEDS: POTASSIUM CHLORIDE 20 MEQ/15 ML ORAL LIQUID PO SCH (08:21)
[2017-01-29] MEDS: CYANOCOBALAMIN (B-12) 1,000mcg/ml INJECTION IM SCH (08:21)
[2017-01-29] MEDS: ASPIRIN 81 MG CHEWABLE TABLET PO SCH (08:22)
[2017-01-29] MEDS: SODIUM BICARBONATE 650 MG TABLET PO SCH ×2 (08:22→21:31)
[2017-01-29] MEDS: PRAMIPEXOLE 1 MG TABLET PO SCH ×4 (08:22→21:33)
[2017-01-29] MEDS: MAGNESIUM OXIDE 400 MG TABLET PO SCH ×2 (08:22→21:32)
[2017-01-29] MEDS: DRONABINOL 2.5 MG CAPSULE PO SCH ×2 (08:22→21:31)
[2017-01-29] MEDS: FAMOTIDINE 20 MG TABLET PO SCH (08:22)
[2017-01-29] MEDS: PrednisoLONE 1% EYE DROPS 5ml LEFT EYE SCH ×4 (08:23→21:32)
[2017-01-29] MEDS: CIPROFLOXACIN 0.3% LEFT EYE SCH ×4 (08:23→21:33)
[2017-01-29] MEDS: EYE LEFT EYE SCH ×8 (08:23→21:33)
[2017-01-29] MEDS: KETOROLAC 0.5% LEFT EYE SCH ×4 (08:23→21:32)
[2017-01-29] MEDS: BUDESONIDE/FORMOTEROL 80/4.5mcg INHALER ORAL INH SCH ×2 (10:11→20:14)
--- NOTE | 2017-01-29 10:46 | Pharmacy Consult-TPN/PPN ---
Pharmacy Consult-TPN/PPN - Laboratory Information Chemistry Turbidity < 20 (0-20) 01/29/17 04:27 Sodium 131 MEQ/L (134-144) L 01/29/17 04:27 Potassium 4.6 MEQ/L (3.6-5) 01/29/17 04:27 Chloride 102 MEQ/L (98-107) 01/29/17 04:27 Carbon Dioxide 27 MEQ/L (22-30) 01/29/17 04:27 Anion Gap 2 MEQ/L (5-15) L 01/29/17 04:27 BUN 18.0 MG/DL (9-20) 01/29/17 04:27 Creatinine 0.9 MG/DL (0.8-1.5) D 01/29/17 04:27 GFR Calculation 85 01/29/17 04:27 BUN/Creatinine Ratio 20 RATIO (6-26) 01/29/17 04:27 Glucose 92 MG/DL (75-110) 01/29/17 04:27 Calculated Osmolality 255 MOSM/KG (261-280) L 01/29/17 04:27 Calcium 8.1 MG/DL (8.4-10.2) L 01/29/17 04:27 Phosphorus 2.4 MG/DL (2.5-4.5) L 01/29/17 04:27 Magnesium 2.1 MG/DL (1.6-2.3) 01/29/17 04:27 Total Bilirubin 0.40 MG/DL (0.20-1.30) 01/27/17 05:08 Conjugated Bilirubin 0.00 MG/DL (0.00-0.30) 01/26/17 04:44 Unconjugated Bilirubin 0.10 MG/DL (0.00-11.10) 01/26/17 04:44 Icterus Index < 2 (0-7) 01/29/17 04:27 GGT Cancelled 01/24/17 02:50 AST 20 U/L (17-59) 01/27/17 05:08 ALT 42 U/L (21-72) 01/27/17 05:08 Alkaline Phosphatase 78 U/L (38-126) 01/27/17 05:08 Troponin I < 0.012 ng/ml (0-0.12) 01/24/17 02:54 Total Protein 5.1 G/DL (6.3-8.2) L 01/27/17 05:08 Albumin 2.5 G/DL (3.5-5.0) L 01/29/17 04:27 Globulin 2.4 G/DL (2.4-3.6) 01/27/17 05:08 Albumin/Globulin Ratio 1.1 RATIO (1.1-2.2) 01/27/17 05:08 Prealbumin 12.0 MG/DL (17.6-36.0) L 01/24/17 02:54 Lipase 319 U/L (23-300) H 01/24/17 02:54 Plasma Lactate 1.2 MMOL/L (0.6-2.2) 01/24/17 07:45 PSA Screen 0.6 ng/mL (0.0-4.5) 01/24/17 02:50 Vitamin B12 167 PG/ML (239-931) L 01/24/17 02:54 25-OH Vitamin D Total 31 ng/mL (30-100) 01/24/17 02:50 TSH 2.80 MIU/L (0.47-4.68) 01/24/17 02:54 Total Testosterone 217 ng/dL (221-716) L 01/24/17 02:50 Cortisol AM Sample 16 ug/dL (3-20) 01/24/17 07:45 Specimen Hemolysis < 15 (0-25) 01/29/17 04:27 Intake and Output 01/28/17 01/29/17 01/30/17 06:59 06:59 06:59 Intake Total 3188.0 / 3188.0 4461.1667 / 4461.1667 Output Total 1425 / 1425 1050 / 1050 Balance 1763.0 / 1763.0 3411.1667 / 3411.1667 Weight 44.6 kg 47.4 kg 50 kg Intake: IV 1558.0 / 1558.0 2631.1667 / 2631.1667 Intralipid 20% 100 ml @ 100 / 100 100 / 100 50 mls/hr IV 1600 [facility] Rx# :[id number] Sodium Acetate 100 Meq In 485 / 485 330.5 / 330.5 Dextrose 5% in Water 1, 000 ml @ 30 mls/hr IV . Q24H [facility] Rx#:[id number] Sodium Chloride Conc 4 759.5 / 759.5 Meq/ml Sodium Acetate 60 Meq K Phos Inj 44 Meq Calcium Gluconate 9.3 Meq Magnesium Sulfate Inj 16 Meq Potassium Acetate Inj 40 Meq/20 ml Infuvite Adult 10 ml Multi-Trace Elements 1 ml In TPN - Custom Low Carb 2,000 ml @ 70 mls/hr IV .Q24H [facility] Rx#:[id number] Sodium Chloride Conc 4 213.5 / 213.5 1694 / 1694 Meq/ml Sodium Acetate 60 Meq K Phos Inj 44 Meq Magnesium Sulfate Inj 16 Meq Potassium Acetate Inj 40 Meq/20 ml Infuvite Adult 10 ml Multi-Trace Elements 1 ml In TPN - Custom Formula 2,000 ml @ 70 mls/hr IV .Q24H [facility] Rx#:[id number] Sodium Phosphate 20 Mmol 506.6667 / 506.6667 In Normal Saline 500 ml @ 100 mls/hr IV .Q5H4M [facility] Rx#:[id number] Oral 1630 / 1630 1830 / 1830 Output: Urine 275 / 275 1050 / 1050 Urine Amount (Catheter) 1150 / 1150 Other: # Voids 0 3 # Bowel Movements 2 3 DAY 5 of TPN Therapy: Infusing @ 70ml/hr, along with Fat Emulsion 20% 100ml each day to prevent EFAD. This gives approximately 1615 kcal per day total. Currently not on a sliding scale insulin, but BS's are WNL's. Wt increased today to 50kg this am. The new formula was hung last night at 2200. Labs drawn this am at 0400. So had 6 hours of new formula prior to labs is all. 1. Sodium is a little improved. Will continue with current NaCl 100mEq and NaAcetate 80mEq, Na Phosphate 80mEq. 2. Potassium decreased a little, from 5.0 to 4.6 (that is with 6 hours of new formula) Had removed all of the K from the formula yesterday. Still receiving KCL 20mEq po daily. Chloride is good, bicarbonate is improved. Will add K Acetate 40mEq to new bag (will be hung at 2200 tonight) to prevent bottoming out on K+. 3. Calcium WNL's. Continue Calcium Gluconate at 9.3mEq 4. Magnesium remains good. Continue Mag Sulfate 16mEq. Also receiving MagOx 400mg BID orally. 5. Will continue all other additives: (MVI, Trace Elements) Thank you.
[2017-01-29] MEDS: FAT EMULSION 20% 100 ML IV SCH (15:43)
[2017-01-29] MEDS: TAMSULOSIN 0.4 MG CAPSULE PO SCH (21:32)
[2017-01-29] MEDS: Oxycodone *IR* 15 MG TABLET PO PRN (21:40)
[2017-01-29] MEDS: MIRTAZAPINE 15 MG TABLET PO SCH (21:41)
--- NOTE | 2017-01-29 22:20 | Progress Note ---
Subjective: Mr. Bella reports that he feels well and is eating well. He reports having approximately 4 semisolid stools today and no nocturnal last night. Is ambulating with assistance and denied lightheadedness. His had no dyspnea, chest pain, or nausea. He is voiding frequently but has no dysuria. Patient expressed satisfaction that he feels "full" for a change in that he's gained weight. Objective Vital signs: Temperature 97.5 F 01/29/17 15:49 Pulse Rate 90 01/29/17 15:49 Respiratory Rate 16 01/29/17 20:15 Blood Pressure 155/79 H 01/29/17 15:49 Pulse Oximetry 100 01/29/17 15:49 Oxygen Delivery Method Room Air EXAM General-NAD, alert, talkative HEENT-conjunctiva clear, sclera anicteric Lungs-respirations nonlabored, good airflow, breath sounds clear Cardiac-regular rhythm, S1-S2 Abd-soft, nontender, bowel sounds present/active Ext-without edema Neuro-moving all extremities well Psych-in good spirits, calm - Weight: 50 kg Results - Labs CBC & Chem 7: 01/29/17 04:27 01/29/17 04:27 Labs: Phosphorus 2.4, albumin 2.5, magnesium 2.1 - ABG Interpretation ABG results: 01/23/17 01/24/17 17:45 02:54 ABG pH 7.130 L* ABG pCO2 14 L* ABG pO2 129 H ABG HCO3 5 L ABG Total CO2 5.1 L ABG O2 Saturation 98.0 ABG Base Excess -22.3 L VBG pH 7.250 L VBG pCO2 20 L VBG pO2 53 H VBG HCO3 9 L VBG Total CO2 9.4 VBG O2 Saturation 81.0 VBG Base Excess -16.4 L Assessment and Plan (1) Adult celiac disease Current visit: Yes Status: Chronic (2) Diarrhea Current visit: Yes Status: Acute (3) Acute kidney injury superimposed on chronic kidney disease Current visit: Yes Status: Acute (4) Malabsorption syndrome Current visit: Yes Status: Chronic (5) Malnutrition due to starvation Current visit: Yes Status: Chronic (6) Cachexia Current visit: Yes Status: Chronic (7) Chronic kidney disease Current visit: Yes Status: Chronic (8) Dehydration Current visit: Yes Status: Resolved (9) Hypertension Current visit: Yes Status: Chronic (10) Hypophosphatemia Current visit: Yes Status: Acute (11) Hypomagnesemia Current visit: Yes Status: Acute (12) Hypokalemia Current visit: Yes Status: Acute (13) Hyponatremia Current visit: Yes Status: Acute DVT Prophylaxis: SCD's Resuscitation Status: Full Code Assessment and Plan: Celiac disease, uncontrolled due to dietary noncompliance Malnutrition/malabsorption Hypophosphatemia-acute Hyponatremia-acute Metabolic acidosis Hypokalemia- acute Hyponatremia- acute Hematuria-resolved Leukocytosis-acute Anemia B-12 deficiency-likely due to malabsorption Bradycardia-resolved Hypertension History of V. tach Congestive heart failure, history Asthma Low testosterone level-defer to outpatient management/further evaluation History of hepatitis C Rheumatoid arthritis Tobacco use disorder Oral intake continues to improve, tolerating gluten-free diet with some but controllable diarrhea. Weight up 5 kg in the past 4-5 days. Good oral intake-believe we can titrate TPN rate tomorrow with plans of discontinuing TPN when current bag is infused. Testing for celiac disease pending however previously positive with high titer. Patient advised that he may require repeat colonoscopy with biopsies of colon and terminal ileum if diarrhea continues due to prior evidence of nonspecific colitis. Renal function has normalized. Hemoglobin down today-no reported blood loss, asymptomatic. Suspect are artifact due to blood being drawn through PICC line. Reassess in a.m. Will need to continue to monitor electrolytes off TPN for stability and need for oral replacement. IM B-12 for B-12 deficiency due to malabsorption, may be able to discharge with oral supplements. Increase activities. Approaching discharge. Hepatitis C viral RNA not detected-similar to testing 2 years ago by gastroenterology. Nursing provide supplemental history, discussed with pharmacy, multiple labs/ medications modified. Sepsis Assessment - Evaluation Sepsis screening result: No Definite Risk Hospital Course Summary Disclaimer: The visit summary below is not to be considered part of the above Progress Note. Hospital Course: 01/26/17 Malnutrition Hypokalemia- acute Hyponatremia- acute Hematuria- acute Leukocytosis-acute Bradycardia Hypertension History of V. tach Electrolyte abnormalities Congestive heart failure Asthma History of hepatitis C History of celiac disease Rheumatoid arthritis Tobacco use disorder Plan Malnutrition is a concern - suspect malabsorption. Continue with TPN as well as oral intake. Electrolytes remain abnormal, Potassium increased to 3.3, however. Sodium did decrease to 128 Will add Questran PRN to assist with increase bowel movements CT abd does reveal diffuse fluid-filled small and large bowel along with hepatic steatosis. This could be related to known history of celiac disease Echocardiogram was obtained reveling 1. Normal cardiac chamber size. 2. Preserved LV systolic function with septal wall hypokinesis. EF is estimated at 50-55%. 3. No significant valvular dysfunction. 4. Mitral annular calcification. Appreciate consultation by Dr. Lara in regards to hematuria. Patient will likely need to follow-up in the outpatient setting for cystoscopy 01/27/17 Overall, clinically loose is feeling better today. Diarrhea stools have decreased significantly. Has only had one stool in the last 15 hours and has not been requiring Questran today. He is tolerating a soft diet without any difficulties. He continues to receive TPN for additional nutrition. Patient is up 2 Kg since admission. Did have dietary education with discussion regarding celiac disease and dietary modifications including eating gluten-free Continue to monitor electrolytes, Sodium remains low at 129, Hypokalemia has resolved. 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 Will discuss further orders and plan of care with Dr Newsome 01/28/17 20:18 Oral intake continues to improve, tolerating gluten-free diet with some but controllable diarrhea. Reassess weight tomorrow, may be able to begin titrating off TPN. Acetate shortage has required eliminating sodium acetate infusion, sodium acetate increased slightly but potassium acetate discontinued in TPN, sodium phosphate added to TPN and supplemental infusion given due to marked hypophosphatemia-likely refeeding hypophosphatemia. Continue oral sodium bicarbonate tablets. Increase activities. Approaching discharge. Gluten-free diet and need to follow the diet faithfully again discussed with the patient. Hepatitis C viral RNA not detected-similar to testing 2 years ago by gastroenterology. Testing for celiac disease pending however previously positive with high titer. 01/29/17 22:27 Oral intake continues to improve, tolerating gluten-free diet with some but controllable diarrhea. Weight up 5 kg in the past 4-5 days. Good oral intake-believe we can titrate TPN rate tomorrow with plans of discontinuing TPN when current bag is infused. Testing for celiac disease pending however previously positive with high titer. Patient advised that he may require repeat colonoscopy with biopsies of colon and terminal ileum if diarrhea continues due to prior evidence of nonspecific colitis. Hemoglobin down today-no reported blood loss, asymptomatic. Suspect are artifact due to blood being drawn through PICC line. Reassess in a.m. Renal function has normalized. Will need to continue to monitor electrolytes off TPN for stability and need for oral replacement. IM B-12 for B-12 deficiency due to malabsorption, may be able to discharge with oral supplements.
[2017-01-29] MEDS: SODIUM ACETATE IV SCH (23:45)
[2017-01-29] MEDS: [UNRECOGNIZED DRUG - OTHER] IV SCH (23:45)
[2017-01-29] MEDS: SODIUM CHLORIDE IV SCH (23:45)
[2017-01-29] MEDS: SODIUM PHOSPHATE IV SCH (23:45)
[2017-01-30] MEDS: SALINE FLUSH 10ml SYRINGE IVF PRN (00:36)
[2017-01-30] MEDS: SODIUM ACETATE IV SCH ×2 (00:38→00:49)
[2017-01-30] MEDS: SODIUM PHOSPHATE IV SCH ×2 (00:38→00:49)
[2017-01-30] MEDS: SODIUM CHLORIDE IV SCH ×2 (00:38→00:49)
[2017-01-30] MEDS: [UNRECOGNIZED DRUG - OTHER] IV SCH (00:38)
[2017-01-30] MEDS: [UNRECOGNIZED DRUG - OTHER] IV SCH (00:49)
[2017-01-30 07:59] VITALS: BP 157/92; RESP 18; TEMP 97.5; O2SAT 100
[2017-01-30] MEDS: CYANOCOBALAMIN (B-12) 1,000mcg/ml INJECTION IM SCH (08:52)
[2017-01-30] MEDS: ASPIRIN 81 MG CHEWABLE TABLET PO SCH (08:52)
[2017-01-30] MEDS: MAGNESIUM OXIDE 400 MG TABLET PO SCH (08:52)
[2017-01-30] MEDS: DRONABINOL 2.5 MG CAPSULE PO SCH (08:52)
[2017-01-30] MEDS: POTASSIUM CHLORIDE 20 MEQ/15 ML ORAL LIQUID PO SCH (08:53)
[2017-01-30] MEDS: PRAMIPEXOLE 1 MG TABLET PO SCH ×2 (08:53→12:23)
[2017-01-30] MEDS: FAMOTIDINE 20 MG TABLET PO SCH (08:53)
[2017-01-30] MEDS: SODIUM BICARBONATE 650 MG TABLET PO SCH (08:53)
[2017-01-30] MEDS: EYE LEFT EYE SCH ×2 (08:56→08:57)
[2017-01-30] MEDS: CIPROFLOXACIN 0.3% LEFT EYE SCH (08:56)
[2017-01-30] MEDS: PrednisoLONE 1% EYE DROPS 5ml LEFT EYE SCH (08:56)
[2017-01-30] MEDS: KETOROLAC 0.5% LEFT EYE SCH (08:57)
[2017-01-30] MEDS: BUDESONIDE/FORMOTEROL 80/4.5mcg INHALER ORAL INH SCH (09:29)
[2017-01-30 10:29] VITALS: PULSE 70
--- NOTE | 2017-01-30 10:47 | Pharmacy Consult-TPN/PPN ---
Pharmacy Consult-TPN/PPN - Laboratory Information Chemistry Turbidity < 20 (0-20) 01/30/17 06:13 Sodium 132 MEQ/L (134-144) L 01/30/17 06:13 Potassium 3.9 MEQ/L (3.6-5) 01/30/17 06:13 Chloride 101 MEQ/L (98-107) 01/30/17 06:13 Carbon Dioxide 24 MEQ/L (22-30) 01/30/17 06:13 Anion Gap 7 MEQ/L (5-15) 01/30/17 06:13 BUN 17.0 MG/DL (9-20) 01/30/17 06:13 Creatinine 0.8 MG/DL (0.8-1.5) 01/30/17 06:13 GFR Calculation 97 01/30/17 06:13 BUN/Creatinine Ratio 21 RATIO (6-26) 01/30/17 06:13 Glucose 119 MG/DL (75-110) H 01/30/17 06:13 Calculated Osmolality 258 MOSM/KG (261-280) L 01/30/17 06:13 Calcium 8.3 MG/DL (8.4-10.2) L 01/30/17 06:13 Phosphorus 2.6 MG/DL (2.5-4.5) 01/30/17 06:13 Magnesium 2.1 MG/DL (1.6-2.3) 01/29/17 04:27 Total Bilirubin 0.40 MG/DL (0.20-1.30) 01/27/17 05:08 Conjugated Bilirubin 0.00 MG/DL (0.00-0.30) 01/26/17 04:44 Unconjugated Bilirubin 0.10 MG/DL (0.00-11.10) 01/26/17 04:44 Icterus Index < 2 (0-7) 01/30/17 06:13 GGT Cancelled 01/24/17 02:50 AST 20 U/L (17-59) 01/27/17 05:08 ALT 42 U/L (21-72) 01/27/17 05:08 Alkaline Phosphatase 78 U/L (38-126) 01/27/17 05:08 Troponin I < 0.012 ng/ml (0-0.12) 01/24/17 02:54 Total Protein 5.1 G/DL (6.3-8.2) L 01/27/17 05:08 Albumin 2.6 G/DL (3.5-5.0) L 01/30/17 06:13 Globulin 2.4 G/DL (2.4-3.6) 01/27/17 05:08 Albumin/Globulin Ratio 1.1 RATIO (1.1-2.2) 01/27/17 05:08 Prealbumin 12.0 MG/DL (17.6-36.0) L 01/24/17 02:54 Lipase 319 U/L (23-300) H 01/24/17 02:54 Plasma Lactate 1.2 MMOL/L (0.6-2.2) 01/24/17 07:45 PSA Screen 0.6 ng/mL (0.0-4.5) 01/24/17 02:50 Vitamin B12 167 PG/ML (239-931) L 01/24/17 02:54 25-OH Vitamin D Total 31 ng/mL (30-100) 01/24/17 02:50 TSH 2.80 MIU/L (0.47-4.68) 01/24/17 02:54 Total Testosterone 217 ng/dL (221-716) L 01/24/17 02:50 Cortisol AM Sample 16 ug/dL (3-20) 01/24/17 07:45 Specimen Hemolysis < 15 (0-25) 01/30/17 06:13 Intake and Output 01/29/17 01/30/17 01/31/17 06:59 06:59 06:59 Intake Total 4461.1667 / 4461.1667 4790 / 4790 Output Total 1050 / 1050 800 / 800 2 / 2 Balance 3411.1667 / 3411.1667 3990 / 3990 -2 / -2 Weight 47.4 kg 50 kg 50.3 kg Intake: IV 2631.1667 / 2631.1667 1780 / 1780 Intralipid 20% 100 ml @ 100 / 100 100 / 100 50 mls/hr IV 1600 GIBRAN Rx# :[id number] Sodium Acetate 100 Meq In 330.5 / 330.5 Dextrose 5% in Water 1, 000 ml @ 30 mls/hr IV . Q24H GIBRAN Rx#:[id number] Sodium Chloride Conc 4 1694 / 1694 Meq/ml Sodium Acetate 60 Meq K Phos Inj 44 Meq Magnesium Sulfate Inj 16 Meq Potassium Acetate Inj 40 Meq/20 ml Infuvite Adult 10 ml Multi-Trace Elements 1 ml In TPN - Custom Formula 2,000 ml @ 70 mls/hr IV .Q24H IGBRAN Rx#:[id number] Sodium Chloride Conc 4 1680 / 1680 Meq/ml Sodium Acetate 80 Meq Sodium Phosphate 80 Meq Magnesium Sulfate Inj 16 Meq Calcium Gluconate 9.3 Meq Infuvite Adult 10 ml Multi-Trace Elements 1 ml In TPN - Custom Formula 2,000 ml @ 70 mls/hr IV .Q24H GIBRAN Rx#:[id number] Sodium Phosphate 20 Mmol 506.6667 / 506.6667 In Normal Saline 500 ml @ 100 mls/hr IV .Q5H4M G[facility]RAN Rx#:[id number] Oral 1830 / 1830 3010 / 3010 Output: Urine 1050 / 1050 800 / 800 2 / 2 Other: # Voids 3 # Bowel Movements 3 2 - Consult Information TPN rate decreased late yesterday to 35 mls/hr. Spolke with Dr Cabrera and received OK to discontinue TPN at 1500 today. Thank you.
--- NOTE | 2017-01-30 11:47 | Progress Note ---
Subjective: F/U: Celiac disease, diarrhea. Doing well today. Eating well-no nausea or ab pain with eating. Stools much less loose and frequent. Strength improved. Ambulating well. Breathing well. No chest pain. No urinary c/o. Feels ready to go home. Objective Vital signs: Temperature 97.5 F 01/30/17 07:58 Pulse Rate 70 01/30/17 08:00 Respiratory Rate 18 01/30/17 09:30 Blood Pressure 157/92 H 01/30/17 07:58 Pulse Oximetry 100 01/30/17 07:58 Oxygen Delivery Method Room Air Weight: 50.3 kg - Constitutional Present: no acute distress, well developed, thin, cooperative. Absent: agitated - Routine HEENT Exam Head: Present: normocephalic, atraumatic Eye: Present: EOMI, PERRL ENT: Present: mucous membranes moist - Routine Respiratory Exam Present: decreased breath sounds, CTA bilaterally. Absent: respiratory distress , rhonchi, stridor, wheezes - Routine Cardiovascular Exam Present: RRR - Routine Abdominal Exam Present: soft, normoactive bowel sounds, non distended, non tender - Routine Extremities Exam Present: no edema, pulses intact. Absent: cyanosis, clubbing - Routine Musculoskeletal Exam Musculoskeletal: Present: no clubbing or cyanosis, normal strength. Absent: no joint swelling - Routine Skin Exam Present: intact, warm - Routine Neurological Exam Present: alert, oriented X3, CN II-XII intact, vision grossly intact, hearing grossly intact. Absent: motor deficit - Routine Psychiatric Exam Present: normal affect, normal thought process, cooperative. Absent: anxious, agitated Results - Labs CBC & Chem 7: 01/30/17 06:13 01/30/17 06:13 Labs: Laboratory Tests 01/30/17 06:13 Phosphorus 2.6 - ABG Interpretation ABG results: 01/23/17 01/24/17 17:45 02:54 ABG pH 7.130 L* ABG pCO2 14 L* ABG pO2 129 H ABG HCO3 5 L ABG Total CO2 5.1 L ABG O2 Saturation 98.0 ABG Base Excess -22.3 L VBG pH 7.250 L VBG pCO2 20 L VBG pO2 53 H VBG HCO3 9 L VBG Total CO2 9.4 VBG O2 Saturation 81.0 VBG Base Excess -16.4 L Assessment and Plan (1) Adult celiac disease Current visit: Yes Status: Chronic (2) Diarrhea Current visit: Yes Status: Acute (3) Cachexia Current visit: Yes Status: Chronic (4) Chronic kidney disease Current visit: Yes Status: Chronic (5) Acute kidney injury superimposed on chronic kidney disease Problem details: POA Current visit: Yes Status: Resolved (6) Dehydration Problem details: POA Current visit: Yes Status: Resolved (7) Hypertension Current visit: Yes Status: Chronic (8) Hypophosphatemia Problem details: POA Current visit: Yes Status: Resolved (9) Hypomagnesemia Problem details: POA Current visit: Yes Status: Resolved (10) Hypokalemia Problem details: POA Current visit: Yes Status: Resolved (11) Hyponatremia Problem details: Not POA Current visit: Yes Status: Acute (12) Malnutrition due to starvation Current visit: Yes Status: Chronic (13) Malabsorption syndrome Current visit: Yes Status: Chronic DVT Prophylaxis: SCD's GI Prophylaxis: Pepcid Resuscitation Status: Full Code Assessment and Plan: Celiac disease, uncontrolled due to dietary noncompliance Malnutrition/malabsorption Hypophosphatemia-acute Hyponatremia-acute Metabolic acidosis Hypokalemia- acute Hyponatremia- acute Hematuria-resolved Leukocytosis-acute Anemia B-12 deficiency-likely due to malabsorption Bradycardia-resolved Hypertension History of V. tach Congestive heart failure, history Asthma Low testosterone level-defer to outpatient management/further evaluation History of hepatitis C Rheumatoid arthritis Tobacco use disorder Doing well-oral intake improved and diarrhea decreased significantly. Will d/c to home. Stressed the importance of avoiding gluten. Will continue oral [id number] to reassess B12 level in about 2-3 months to make sure improving. If level not increasing with oral replacement would need IM injections in the outpatient setting. Start KPhos due to low phos with refeeding - will need continued monitoring. D/C TPN as taking oral well. F/U with Dr Lara in 2 weeks secondary to urinary retention and hematuria. F/U with Dr Giron in 1 week. Recommend recheck BMP, Phos, and CBC at that time. Will need B12 in 2-3 months. - Time spent with patient discharge greater than 30 minutes Sepsis Assessment - Evaluation Sepsis screening result: No Definite Risk Hospital Course Summary Disclaimer: The visit summary below is not to be considered part of the above Progress Note. Hospital Course: 01/24/17 This is a 66 YO male with H.O Celiac sprue, that comes with diarrhea very weak and malnourished and with renal failure that is probably much worse than appreciated by his sCr due to his cachexia. He takes opioids at home (Only IR Oxycodone) for pain, was a smoker in the past of 1/2 PPD but quit years ago. He states he has been wasting away for 4 to 6 years. In the initial labs pt has severe metabolic acidosis, severe hypomagnesemia, hypokalemia, renal failure. He is not too anemic but suspect he will hemodilute. A PICC was placed anticipating the need for TPN and multiple electrolyte drips. Dx 1) Severe protein calorie malnutrition 2) Diarrhea, pannel send, C Diff ordered. Pt was checked for HIV several years ago, may need retested. CT abd/Pelvis ordered 3) Acidosis - Start Bicarb drip - Rehydrate 4) FEN A) Hypokelamia - Give 40 MEq IV. B) Hypomagnesemia - Give 4 gm IV 5) Hematuria with this degree of cachexia a malignancy is possible - renal cell , hepatocarcinoma. CXR shows no mass. - CT scan abdomen and pelvis no contrast - done but not read yet. 6) HTN ? Pt on BB will hold now due to bradycardia. 01/25/17 SUMMARY - This is a 66 YO male with H.O Celiac sprue, that comes with diarrhea very weak and malnourished and with renal failure that is probably much worse than appreciated by his sCr due to his cachexia. He takes opioids at home (Only IR Oxycodone) for pain, was a smoker in the past of 1/2 PPD but quit years ago. He states he has been wasting away for 4 to 6 years. In the initial labs pt has severe metabolic acidosis, severe hypomagnesemia, hypokalemia, renal failure. He is not too anemic but suspect he will hemodilute. A PICC was placed anticipating the need for TPN and multiple electrolyte drips. He will be started on Low carb TPN (01/25) and in a GLUTEN FREE DIET (FULL LIQUID). His UDS showed exposure to Cannabis, pt states he has been using it to improve his appetite with good results. Diagnosis - 1) GASTROINTESTINAL ASSSEMENT A) PROFOUND MALNUTRITION (Albumin - 2.5 LOW* prealbumin 12LOW) - MALABSORPTION IS LIKELY - Celiac sprue ? (By H.O Provided by PCP) Pt presents with Severe protein calorie malnutrition, advanced sarcopenia/ weakness, multiple electrolyte abnormalities. - Multiple studies are pending -Celiac disease pannel ordered (TTG N/A - ordered a pannel) - Testosterone, Vit D, HIV - Added Marinol for nausea (01/25) - Will check a CT abd/pelvis with ORAL contrast tomorrow (01/26) - Concerning - if he has had Celiac sprue - for a small bowel lymphoma. - NUTRITION SUPPORT - Started a Full liquid diet (gluten free) on 01/25 - Started on TPN (01/25) - low carb at a low rate. - Watch for refeeding syndrome - Appreciate pharmacy assistance in this case. B) H/O Hepatitis C, pt states he had a "Spot" in his liver (Has been in a [facility] in the past) and was deemed to be NOT a good candidate for PEGINTRON + Ribavirin. - Viral load pending - If + for hepatitis C check hepatitis B - If negative immunize. If + -> Tx for hep C may be very risky. - May benefit from ID consultation once tests are back to evaluate for treatment. C) Diarrhea, pannel send, C Diff ordered. Pt was checked for HIV several years ago - was rechecked today. - CT abd.Pelvis with Oral contrast tomorrow. ON admission pt was vomiting so this could not be done. - CT abdomen/Pelvis no contrast on admission - did not show any gross evidence of metastatic disease. D) S/P Cholecystectomy. 2) FLUID ELECTROLYTE AND ACID BASE A) Acidosis, metabolic, on admission ABG showed - pH - 7.13, PO2 - 129, PCO2 - 14, Bicarb 5, Saturation of O2 98% - Pt on Bicarb drip since admission, will add oral Bicarb (01/25) - Probably related to CKD/Diarrhea or both. B) FEN - i) Hypokelamia - Lowest K - 2.7 (01/24) Continue replacing ii) Hypomagnesemia - Lowest Mg - 0.7 (01/23) Stable now, will watch carefully. iii) Hypophosphatemia - Lowest PO4 1.6 (7.4) Corrected yesterday with 15MMol. iv) Hyponatremia - Na 133 (7/5) will recheck. 3) CARDIOVASCULAR ASSESMENT A) HTN by history. Pt on BB will hold now due to bradycardia. - BP normal today, HR is still in the 50's - TSH normal. B) Short run on NSVT (01/23 overnight - per stevedore hold report). - 2-D echo done, reading is pending, pt could have advanced CHF with cardiac cachexia. - Probably due on admission to electrolyte abnormalities. 4) Hematuria with this degree of cachexia a malignancy is possible - renal cell , hepatocarcinoma. - CXR shows no mass, this is reassuring. - CT scan abdomen and pelvis no contrast - No mass. - Was retaining urine - a wood was attemped last night but could not be passed. Was placed on Flomax on 01/24 - was able to urinate now. - Urology consulted - No need for Wood - Pt will need Cystoscopy and probably urodinamics (this can be done as outpatient). 5) PREVENTION - - PANTOPRAZOLE IV - SCD'S 01/26/17 Malnutrition Hypokalemia- acute Hyponatremia- acute Hematuria- acute Leukocytosis-acute Bradycardia Hypertension History of V. tach Electrolyte abnormalities Congestive heart failure Asthma History of hepatitis C History of celiac disease Rheumatoid arthritis Tobacco use disorder Plan Malnutrition is a concern - suspect malabsorption. Continue with TPN as well as oral intake. Electrolytes remain abnormal, Potassium increased to 3.3, however. Sodium did decrease to 128 Will add Questran PRN to assist with increase bowel movements CT abd does reveal diffuse fluid-filled small and large bowel along with hepatic steatosis. This could be related to known history of celiac disease Echocardiogram was obtained reveling 1. Normal cardiac chamber size. 2. Preserved LV systolic function with septal wall hypokinesis. EF is estimated at 50-55%. 3. No significant valvular dysfunction. 4. Mitral annular calcification. Appreciate consultation by Dr. Lara in regards to hematuria. Patient will likely need to follow-up in the outpatient setting for cystoscopy 01/27/17 Overall, clinically loose is feeling better today. Diarrhea stools have decreased significantly. Has only had one stool in the last 15 hours and has not been requiring Questran today. He is tolerating a soft diet without any difficulties. He continues to receive TPN for additional nutrition. Patient is up 2 Kg since admission. Did have dietary education with discussion regarding celiac disease and dietary modifications including eating gluten-free Continue to monitor electrolytes, Sodium remains low at 129, Hypokalemia has resolved. [employer] improving. Will discuss further orders and plan of care with Dr Newsome 01/28/17 Oral intake continues to improve, tolerating gluten-free diet with some but controllable diarrhea. Reassess weight tomorrow, may be able to begin titrating off TPN. Acetate shortage has required eliminating sodium acetate infusion, sodium acetate increased slightly but potassium acetate discontinued in TPN, sodium phosphate added to TPN and supplemental infusion given due to marked hypophosphatemia-likely refeeding hypophosphatemia. Continue oral sodium bicarbonate tablets. Increase activities. Approaching discharge. Gluten-free diet and need to follow the diet faithfully again discussed with the patient. Hepatitis C viral RNA not detected-similar to testing 2 years ago by gastroenterology. Testing for celiac disease pending however previously positive with high titer. 01/29/17 Oral intake continues to improve, tolerating gluten-free diet with some but controllable diarrhea. Weight up 5 kg in the past 4-5 days. Good oral intake-believe we can titrate TPN rate tomorrow with plans of discontinuing TPN when current bag is infused. Testing for celiac disease pending however previously positive with high titer. Patient advised that he may require repeat colonoscopy with biopsies of colon and terminal ileum if diarrhea continues due to prior evidence of nonspecific colitis. Hemoglobin down today-no reported blood loss, asymptomatic. Suspect are artifact due to blood being drawn through PICC line. Reassess in a.m. Renal function has normalized. Will need to continue to monitor electrolytes off TPN for stability and need for oral replacement. IM B-12 for B-12 deficiency due to malabsorption, may be able to discharge with oral supplements. 01/30/17 Doing well-oral intake improved and diarrhea decreased significantly. Will d/c to home. Stressed the importance of avoiding gluten. Will continue oral [id number] to reassess B12 level in about 2-3 months to make sure improving. If level not increasing with oral replacement would need IM injections in the outpatient setting. Start KPhos due to low phos with refeeding - will need continued monitoring. D/C TPN as taking oral well. F/U with Dr Lara in 2 weeks secondary to urinary retention and hematuria. F/U with Dr Giron in 1 week. Recommend recheck BMP, Phos, and CBC at that time. Will need B12 in 2-3 months.
--- NOTE | 2017-01-30 12:09 | Discharge Summary ---
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: No Comment: Will call 8:30am 01/26/17 21:14 Dietary Consult [CONS] Routine Comment: possible history of celiac disease Reason For Exam: weight loss/diarrhea - Discharge Diagnosis (1) Acute kidney injury superimposed on chronic kidney disease Problem Details: POA Status: Resolved (2) Adult celiac disease Status: Chronic (3) Diarrhea Qualifiers: Diarrhea type: unspecified type Qualified Code(s): R19.7 - Diarrhea, unspecified Status: Acute (4) Cachexia Status: Chronic (5) Chronic kidney disease Qualifiers: Chronic kidney disease stage: stage 2 (mild) Qualified Code(s): N18.2 - Chronic kidney disease, stage 2 (mild) Status: Chronic (6) Dehydration Problem Details: POA Status: Resolved (7) Hypertension Qualifiers: Hypertension type: essential hypertension Qualified Code(s): I10 - Essential (primary) hypertension Status: Chronic (8) Hypophosphatemia Problem Details: POA Status: Resolved (9) Hypomagnesemia Problem Details: POA Status: Resolved (10) Hypokalemia Problem Details: POA Status: Resolved (11) Hyponatremia Problem Details: Not POA Status: Acute (12) Malnutrition due to starvation Status: Chronic (13) Malabsorption syndrome Qualifiers: Intestinal malabsorption type: celiac disease Qualified Code(s): K90.0 - Celiac disease Status: Chronic - Procedures Procedures: DATE 01/25/2017 INDICATION Nonsustained VT. Coronary artery disease with prior stents. TECHNICAL QUALITY Technically fair 2-D, M-mode, Doppler echocardiographic images were submitted for interpretation. FINDINGS 1. CARDIAC CHAMBERS. All cardiac chamber measurements are normal. Aortic root diameter is normal. RV size and contractility appear normal. 2. LEFT VENTRICLE. Wall thickness is normal. The septum appears hypokinetic. LV systolic function appears to be low-normal range. Ejection fraction is visually estimated at 50-55%. Diastolic function parameters are normal. 3. VALVES. Aortic valve exhibits normal structure and motion. Mitral valve exhibits annular calcification posteriorly. Valve excursion and leaflet structure otherwise is unremarkable. Tricuspid valve structure and motion appear normal with normal valve excursion. 4. DOPPLER. Shows normal flow velocities throughout. Trace regurgitation involving mitral and tricuspid valve is noted. Systolic PA pressure is estimated at 24 mmHg based on Bernoulli equation. 5. No evidence of pericardial effusion, intracardiac masses or demonstrable shunts. IMPRESSION 1. Normal cardiac chamber size. 2. Preserved LV systolic function with septal wall hypokinesis. EF is estimated at 50-55%. 3. No significant valvular dysfunction. 4. Mitral annular calcification. - Laboratory Labs: 01/30/17 06:13 01/30/17 06:13 History of Present Illness HPI: Pt referred by PCP for abdominal pain (more on the RUQ) and profuse diarrhea. Pt seen in the ED, no elevation of pancreatic enzymes, no elevated WBC, LFT's are not critically elevated (Apparently pt is S/P cholecystectomy) pt very acidotic and in renal failure most likely chronic + severely malnourished and cachectic, pt has H.O celiac sprue per PCP. Pt also states he has Hepatitis C and states has a "spot" on his liver. He was apparently not a candidate for PEGINTRON + Rivavirin in the past, he is a Vet but does not follow at the [facility], does not recall being evaluated for the newer anti-virals. For complete details of the H&P, refer to that document. Objective Vital signs: Temperature 97.5 F 01/30/17 07:58 Pulse Rate 70 01/30/17 08:00 Respiratory Rate 18 01/30/17 09:30 Blood Pressure 157/92 H 01/30/17 07:58 Pulse Oximetry 100 01/30/17 07:58 Oxygen Delivery Method Room Air Weight: 50.3 kg Hospital Course This is a general summary of the patient's hospital course. For more details refer to the complete medical record. Hospital course: 01/24/17 This is a 66 YO male with H.O Celiac sprue, that comes with diarrhea very weak and malnourished and with renal failure that is probably much worse than appreciated by his sCr due to his cachexia. He takes opioids at home (Only IR Oxycodone) for pain, was a smoker in the past of 1/2 PPD but quit years ago. He states he has been wasting away for 4 to 6 years. In the initial labs pt has severe metabolic acidosis, severe hypomagnesemia, hypokalemia, renal failure. He is not too anemic but suspect he will hemodilute. A PICC was placed anticipating the need for TPN and multiple electrolyte drips. Dx 1) Severe protein calorie malnutrition 2) Diarrhea, pannel send, C Diff ordered. Pt was checked for HIV several years ago, may need retested. CT abd/Pelvis ordered 3) Acidosis - Start Bicarb drip - Rehydrate 4) FEN A) Hypokelamia - Give 40 MEq IV. B) Hypomagnesemia - Give 4 gm IV 5) Hematuria with this degree of cachexia a malignancy is possible - renal cell , hepatocarcinoma. CXR shows no mass. - CT scan abdomen and pelvis no contrast - done but not read yet. 6) HTN ? Pt on BB will hold now due to bradycardia. 01/25/17 SUMMARY - This is a 66 YO male with H.O Celiac sprue, that comes with diarrhea very weak and malnourished and with renal failure that is probably much worse than appreciated by his sCr due to his cachexia. He takes opioids at home (Only IR Oxycodone) for pain, was a smoker in the past of 1/2 PPD but quit years ago. He states he has been wasting away for 4 to 6 years. In the initial labs pt has severe metabolic acidosis, severe hypomagnesemia, hypokalemia, renal failure. He is not too anemic but suspect he will hemodilute. A PICC was placed anticipating the need for TPN and multiple electrolyte drips. He will be started on Low carb TPN (01/25) and in a GLUTEN FREE DIET (FULL LIQUID). His UDS showed exposure to Cannabis, pt states he has been using it to improve his appetite with good results. Diagnosis - 1) GASTROINTESTINAL ASSSEMENT A) PROFOUND MALNUTRITION (Albumin - 2.5 LOW* prealbumin 12LOW) - MALABSORPTION IS LIKELY - Celiac sprue ? (By H.O Provided by PCP) Pt presents with Severe protein calorie malnutrition, advanced sarcopenia/ weakness, multiple electrolyte abnormalities. - Multiple studies are pending -Celiac disease pannel ordered (TTG N/A - ordered a pannel) - Testosterone, Vit D, HIV - Added Marinol for nausea (01/25) - Will check a CT abd/pelvis with ORAL contrast tomorrow (01/26) - Concerning - if he has had Celiac sprue - for a small bowel lymphoma. - NUTRITION SUPPORT - Started a Full liquid diet (gluten free) on 01/25 - Started on TPN (01/25) - low carb at a low rate. - Watch for refeeding syndrome - Appreciate pharmacy assistance in this case. B) H/O Hepatitis C, pt states he had a "Spot" in his liver (Has been in a [facility] in the past) and was deemed to be NOT a good candidate for PEGINTRON + Ribavirin. - Viral load pending - If + for hepatitis C check hepatitis B - If negative immunize. If + -> Tx for hep C may be very risky. - May benefit from ID consultation once tests are back to evaluate for treatment. C) Diarrhea, pannel send, C Diff ordered. Pt was checked for HIV several years ago - was rechecked today. - CT abd.Pelvis with Oral contrast tomorrow. ON admission pt was vomiting so this could not be done. - CT abdomen/Pelvis no contrast on admission - did not show any gross evidence of metastatic disease. D) S/P Cholecystectomy. 2) FLUID ELECTROLYTE AND ACID BASE A) Acidosis, metabolic, on admission ABG showed - pH - 7.13, PO2 - 129, PCO2 - 14, Bicarb 5, Saturation of O2 98% - Pt on Bicarb drip since admission, will add oral Bicarb (01/25) - Probably related to CKD/Diarrhea or both. B) FEN - i) Hypokelamia - Lowest K - 2.7 (01/24) Continue replacing ii) Hypomagnesemia - Lowest Mg - 0.7 (01/23) Stable now, will watch carefully. iii) Hypophosphatemia - Lowest PO4 1.6 (7.4) Corrected yesterday with 15MMol. iv) Hyponatremia - Na 133 (01/25) will recheck. 3) CARDIOVASCULAR ASSESMENT A) HTN by history. Pt on BB will hold now due to bradycardia. - BP normal today, HR is still in the 50's - TSH normal. B) Short run on NSVT (01/23 overnight - per bankruptcy processor report). - 2-D echo done, reading is pending, pt could have advanced CHF with cardiac cachexia. - Probably due on admission to electrolyte abnormalities. 4) Hematuria with this degree of cachexia a malignancy is possible - renal cell , hepatocarcinoma. - CXR shows no mass, this is reassuring. - CT scan abdomen and pelvis no contrast - No mass. - Was retaining urine - a wood was attemped last night but could not be passed. Was placed on Flomax on 01/24 - was able to urinate now. - Urology consulted - No need for Wood - Pt will need Cystoscopy and probably urodinamics (this can be done as outpatient). 5) PREVENTION - - PANTOPRAZOLE IV - SCD'S 01/26/17 Malnutrition Hypokalemia- acute Hyponatremia- acute Hematuria- acute Leukocytosis-acute Bradycardia Hypertension History of V. tach Electrolyte abnormalities Congestive heart failure Asthma History of hepatitis C History of celiac disease Rheumatoid arthritis Tobacco use disorder Plan Malnutrition is a concern - suspect malabsorption. Continue with TPN as well as oral intake. Electrolytes remain abnormal, Potassium increased to 3.3, however. Sodium did decrease to 128 Will add Questran PRN to assist with increase bowel movements CT abd does reveal diffuse fluid-filled small and large bowel along with hepatic steatosis. This could be related to known history of celiac disease Echocardiogram was obtained reveling 1. Normal cardiac chamber size. 2. Preserved LV systolic function with septal wall hypokinesis. EF is estimated at 50-55%. 3. No significant valvular dysfunction. 4. Mitral annular calcification. Appreciate consultation by Dr. Lara in regards to hematuria. Patient will likely need to follow-up in the outpatient setting for cystoscopy 01/27/17 Overall, clinically loose is feeling better today. Diarrhea stools have decreased significantly. Has only had one stool in the last 15 hours and has not been requiring Questran today. He is tolerating a soft diet without any difficulties. He continues to receive TPN for additional nutrition. Patient is up 2 Kg since admission. Did have dietary education with discussion regarding celiac disease and dietary modifications including eating gluten-free Continue to monitor electrolytes, Sodium remains low at 129, Hypokalemia has resolved. Treatment Technician improving. Will discuss further orders and plan of care with Dr Newsome 01/28/17 Oral intake continues to improve, tolerating gluten-free diet with some but controllable diarrhea. Reassess weight tomorrow, may be able to begin titrating off TPN. Acetate shortage has required eliminating sodium acetate infusion, sodium acetate increased slightly but potassium acetate discontinued in TPN, sodium phosphate added to TPN and supplemental infusion given due to marked hypophosphatemia-likely refeeding hypophosphatemia. Continue oral sodium bicarbonate tablets. Increase activities. Approaching discharge. Gluten-free diet and need to follow the diet faithfully again discussed with the patient. Hepatitis C viral RNA not detected-similar to testing 2 years ago by gastroenterology. Testing for celiac disease pending however previously positive with high titer. 01/29/17 Oral intake continues to improve, tolerating gluten-free diet with some but controllable diarrhea. Weight up 5 kg in the past 4-5 days. Good oral intake-believe we can titrate TPN rate tomorrow with plans of discontinuing TPN when current bag is infused. Testing for celiac disease pending however previously positive with high titer. Patient advised that he may require repeat colonoscopy with biopsies of colon and terminal ileum if diarrhea continues due to prior evidence of nonspecific colitis. Hemoglobin down today-no reported blood loss, asymptomatic. Suspect are artifact due to blood being drawn through PICC line. Reassess in a.m. Renal function has normalized. Will need to continue to monitor electrolytes off TPN for stability and need for oral replacement. IM B-12 for B-12 deficiency due to malabsorption, may be able to discharge with oral supplements. 01/30/17 Doing well-oral intake improved and diarrhea decreased significantly. Will d/c to home. Stressed the importance of avoiding gluten. Will continue oral [id number] to reassess B12 level in about 2-3 months to make sure improving. If level not increasing with oral replacement would need IM injections in the outpatient setting. Start KPhos due to low phos with refeeding - will need continued monitoring. D/C TPN as taking oral well. F/U with Dr Lara in 2 weeks secondary to urinary retention and hematuria. F/U with Dr Giron in 1 week. Recommend recheck BMP, Phos, and CBC at that time. Will need B12 in 2-3 months. Time spent with patient: discharge greater than 30 minutes DVT Prophylaxis: SCD's Discharge Plan - Med Rec/Dispo Referrals/Follow Up: Carter Grion MD [Family Provider] - 1 Week (Check BMP, Phos, CBC Will need B12 level in 2-3 months - start IM B12 if low on oral. Will need colonoscopy with attention to terminal ileum. ) Davis Lara MD [Physician] - 2 Weeks (F/U Urinary retention and hematuria ) Ronan Instructions: Gastroenteritis (GEN) Prescriptions: New Tamsulosin [Flomax] 0.4 mg PO HS #30 capsule Potassium Acid Phosphate Tab [K-Phos Original] 1,000 mg PO BIDWM #60 tablet Magnesium Oxide [Magox] 400 mg PO BID #60 tablet Continue Mirtazapine 7.5 mg PO HS #0 Aspirin 81 mg PO DAILY #0 Multivitamin [Multi-Day Vitamins] 1 tab PO DAILY #0 Famotidine [Pepcid] 20 mg PO DAILY #0 Cyanocobalamin (Vitamin B-12) [Vitamin B-12] 2,000 mcg PO DAILY #0 Cholecalciferol (Vitamin D3) [Vitamin D3] 2,000 unit PO DAILY Oxycodone *Ir* [Roxicodone *Ir*] 7.5 mg PO QID PRN PRN Reason: Pain Metoprolol Tartrate [Lopressor] 25 mg PO BID Ketorolac 0.5% Eye Drops [Acular 0.5% Eye Drops] 1 drop LEFT EYE QID Nitroglycerin 0.4 mg SL Q5MIN PRN #0 PRN Reason: CHEST PAIN Pramipexole Di-HCl [Mirapex] 0.5 mg PO QID PRN PRN Reason: Prn Orders Hyoscyamine Sulfate [Levsin-Sl] 0.125 mg SL TID PRN #15 tab.subl PRN Reason: Cramps Ciprofloxacin Eye Oint [Ciloxan] 1 applic LEFT EYE QID Propylene Glycol [Lubricant Eye Drops] 1 drop EACH EAR QID PRN PRN Reason: Dry Eyes Potassium Chloride [K-Tab ER] 20 meq PO WB #4 tablet.er pramipexole 0.5 mg tablet 1 mg PO HS tab No Action PrednisoLONE EYE DROPS [Pred Forte] 1 drop LEFT EYE QID Discharge Instructions/Outpatient Orders: Final Provider Discharge Instructions Location: Determined By Patient - Disposition 01 Discharged Home, Self-Care
[2017-01-30] MEDS ORDERED: POTASSIUM ACID PHOSPHATE 500 MG TABLET PO SCH (12:30)
[2017-01-30] MEDS ORDERED: NEOMYCIN/POLYMYXIN/BACITRACIN OINT PACKET TP ONE (12:48)
== END 2017-01-30 14:10 | disposition home or self-care (01) | DRG 682 ==
LOC: ED 14:57 → MED 17:30
PROVIDERS: ADMIT Internal Medicine; ATTEND Internal Medicine